=== PATIENT | male | born 1975 | race Caucasian/White ===

== ENCOUNTER 2016-12-02 09:35 | Inpatient (IN) ==
[2016-12-02] MEDS ORDERED: Lidocaine -MPF 1% 2 ML VIAL ID ONE (09:54)
[2016-12-02] MEDS ORDERED: CeFAZolin Pre 2,000 MG/100 ML 2,000 MG/100 ML BAG IVPB ONE (09:54)
[2016-12-02] MEDS ORDERED: 0.9 % Sodium Chloride 1,000 ML IVC SCH (10:00)
[2016-12-02] MEDS ORDERED: Bupivacaine/EPI 1:200k 0.25%PF 30 ML VIAL ONE (10:01)
[2016-12-02] MEDS ORDERED: 0.9 % Sodium Chloride 500 ML IVC SCH (10:03)
[2016-12-02] MEDS ORDERED: Famotidine 20 MG/2 ML VIAL IVP ONE (10:09)
--- NOTE | 2016-12-02 10:26 | Anesthesia Evaluation PreOp ---
Date of Encounter: 12/02/16 Time of Encounter: 10:25 - Past History Planned Operation: Rt Robotic Partial Nephrectomy Cardiac History: HTN, Hyperlipidemia Pulmonary History: Denies Any Significant HX DRUG ENFORCEMENT AGENT History: Seizures (from 2009 Stroke), CVA (2009, 2012, 2015 visual loss) Other Medical History: Renal (Renal Mass, CKD) Anesthesia History: No Prior Anesthetic Complications Alcohol Use: none Medications and Allergies Amoxicillin 875 mg PO BID #20 tablet 06/06/16 [Rx] Aspirin [Aspirin] 06/06/16 [History] LevETIRAcetam [Keppra] 500 mg PO 06/06/16 [History] Omeprazole [PriLOSEC] 06/06/16 [History] Allergies No Known Allergies Allergy (Verified 06/06/16 12:37) - Meds/Allergy Pre-op Review Medications Reviewed: Yes Allergies Reviewed: Yes Beta Blockers on Current Med List: No Anesthesia Results - Labs Laboratory Tests 11/28/16 11/28/16 18:09 18:09 Hgb 15.9 Hct 48.0 Plt Count 200 Sodium 141 Potassium 4.4 BUN 30 H Creatinine 2.36 H - Imaging EKG: report reviewed (SR, marked Rt [place] Deviation) Anesthesia Exam O2 Sat Height 1.8 m Height 1.8 m Weight 60.328 kg Weight 60.328 kg O2 Sat by Pulse Oximetry 100 Vital Signs Temp Pulse Resp BP Pulse Ox 99.1 F 87 18 156/93 100 12/02/16 10:13 12/02/16 10:13 12/02/16 10:13 12/02/16 10:13 12/02/16 10:13 Height: 5'10 Weight: 133 lbs NPO (# of Hours): MN Pain Scale: 0 - HEENT Pupil (Motor): Pupils equal, EOMI Mallampati: II Teeth: Normal Oral Opening: Greater than 3 - DRUG ENFORCEMENT AGENT LOC: Oriented DRUG ENFORCEMENT AGENT Motor: Normal RUE, Normal LUE, Normal RLE, Normal LLE, Normal Face DRUG ENFORCEMENT AGENT Sensory: Normal: RUE, LUE, RLE, LLE, Deficit: Face (Visual loss) - Cardiac Rhythm: Regular Murmur: None JVD: No Carotid Bruit: No - Pulmonary Breath Sounds: bilateral Clear Respiratory Effort: Symmetrical Anesthesia Assess/Plan ASA Score: 3 (CVA HTN) Modified [place] Scale for Level of Consciousness: Cooperative, oriented, and tranquil Anesthetic Plan: General Monitoring Plan: Standard Monitors, A-Line Recovery Plan: PACU (Discussed GA, agrees to proceed)
[2016-12-02] MEDS ORDERED: Lidocaine -MPF 2% 2 ML VIAL ONE (10:44)
[2016-12-02] MEDS ORDERED: Dexamethasone 4 MG/ML VIAL ONE (10:44)
[2016-12-02] MEDS ORDERED: *HR* Phenylephrine 10 MG/ML VIAL ONE (10:44)
[2016-12-02] MEDS ORDERED: Ondansetron 4 MG/2 ML VIAL ONE (10:44)
[2016-12-02] MEDS ORDERED: *HR* Rocuronium Bromide 50 MG/5 ML VIAL ONE ×2 (10:44→12:02)
[2016-12-02] MEDS ORDERED: Heparin 1,000 UNITS/500 mL NS 500 ML ONE (10:46)
[2016-12-02] MEDS ORDERED: *HR* FentaNYL (PF) 100 MCG/2 ML VIAL ONE ×2 (10:46)
[2016-12-02] MEDS ORDERED: *HR* Propofol 200 MG/20 ML VIAL IVP ONE (10:46)
[2016-12-02] MEDS ORDERED: *HR* Midazolam HCl 5 MG/5 ML VIAL IVP ONE (11:01)
--- NOTE | 2016-12-02 11:07 | History & Physical Report ---
Date of Encounter: 12/02/16 Time of Encounter: 11:06 24 Hour HP Update - Instructions Instructions: If the History and Physical is less than 30 days old and was completed prior to A.M. admission and or procedure and has NOT been updated on calendar day of procedure please complete this update prior to performing procedure. - Update Patient reports changes in Medical Condition: No Changes in assessment/condition: No Changes in Medication: No Preop tests/diagnostics Reviewed: Yes Surgery Remains Indicated: Yes Consent for Planned Operative Procedure(s) Verified: Yes - Pre-Operative Checklist Preoperative Checklist Indicated: Yes Prophylactic Antibiotic Ordered: Yes Home Medications Include Beta Damian: No Is VTE Prophylaxis Indicated?: Yes
[2016-12-02] MEDS ORDERED: *HR* Metoprolol 5 MG/5 ML VIAL IVP ONE (12:00)
--- NOTE | 2016-12-02 12:23 | Anesthesia Procedures ---
Date of Encounter: 12/02/16 Time of Encounter: 11:40 Procedures: Anesthesia - Arterial Line Consent obtained: written consent Time out performed: Yes Sedation: Versed (mg): 2 Sedation: Fentanyl (mcg): 100 Size (Gauge): 20 Length (inches): 1 3/4 Technique Used: sterile prep, guide wire technique, direct puncture technique Post-Procedure: line taped into place, dry sterile dressing placed Patient tolerated procedure: well, no complications Complications: none Site: Radial L
[2016-12-02] MEDS ORDERED: Mannitol 25% vial 12.5 GM/50 ML VIAL ONE (12:50)
[2016-12-02] MEDS ORDERED: Neostigmine Methylsulfate 3 MG/3 ML SYRINGE ONE (14:00)
[2016-12-02] MEDS ORDERED: *HR* HYDROmorphone (PF) 1 MG/ML SYRINGE ONE ×3 (14:14→14:52)
[2016-12-02] MEDS: *HR* HYDROmorphone (PF) 1 MG/ML SYRINGE IVP PRN ×6 (14:15→15:00)
[2016-12-02] MEDS ORDERED: *HR* Promethazine 25 MG/ML VIAL IVP PRN (14:18)
[2016-12-02] MEDS ORDERED: *HR* Meperidine 25 MG/ML SYRINGE ONE (14:20)
[2016-12-02] MEDS: *HR* Meperidine 25 MG/ML SYRINGE IVP PRN ×2 (14:23→14:35)
--- NOTE | 2016-12-02 14:23 | Operative Note ---
Date of procedure: 12/02/16 Pre-op diagnosis: Right renal mass Post-op diagnosis: same Procedure: Right robotic partial nephrectomy. Implants: 19 German Kendrick drain. 16 German Rasmussen. Complications: none. Anesthesia: JELLY Surgeon: Marlo Iqbal Jewel Hole Gauger: Ziggy Ybarra Estimated blood loss (cc): 150 Specimen: Right renal mass Condition: stable Disposition: PACU Procedure in Detail: Indications: Trell is a 41-year-old man who presents with a right renal mass. He has an atrophic left kidney and renal impairment. He elected to undergo a right robotic partial nephrectomy. He was informed of the risks of the procedure which include but are not limited to bleeding, infection, injury to other structures, need for further procedures, urine leak, bowel injury, need for complete nephrectomy, need for open conversion, and the risk of anesthesia. He is willing to proceed. Procedure After informed consent was obtained the patient was brought back to the operating room and placed in the supine position. A timeout was performed. Gen. anesthesia was then administered and an endotracheal tube was placed. Appropriate IV access and arterial lines were obtained. A Rasmussen catheter was then placed. He was then placed in the flank position. His right side was up. All pressure points were padded. He was well secured to the table. He was then prepped and draped in the usual sterile fashion. We then marked out our incision within the umbilicus. A 10 mm incision was then made. The Veress needle was introduced. 2 clicks were heard. It passed the water drop test. Insufflation was then initiated. Pressures were low consecutively. The abdomen was insufflated. Once the pressure was up to 15, we inserted the 12 mm laparoscopic port with the visual obturator. Entry was obtained into the abdomen. The bowel was surveyed below and there is no evidence of bowel injury. Robotic ports were then inserted inferior and lateral to the camera port and superior to the camera port. A 12 mm port was placed for the purchasing administrative assistant inferior to the umbilicus. The robot was docked. The bowel was reflected off the kidney along the white line of Toldt. The mass was easily seen located anteriorly on the kidney. The vena cava was easily identified and that was followed up to the level of the renal vein. The renal artery came behind the inferior vena cava and draped over top of the renal vein with 2 branches. There was a lower pole artery branch and venous branch. In addition there was a branch moving to the superior aspect of the kidney. The vein going to the inferior location the kidney near the mass was dissected. I isolated the artery proximal to its branching point. I then turned my attention to the fat overlying the renal mass. This was dissected off the kidney. The ultrasound was then obtained. I identified the circumference of the tumor and ascertained the depth at which it went. The area of incision through the capsule was identified. This was scored with electrocautery. I utilized a small amount of ICG to identify the normal parenchyma. Mannitol was then given. The renal artery was clamped using the bulldog. The vein was also clamped with a bulldog. The tumor was excised sharply using cold scissors. Once the tumor was removed I utilized a 3-O V-LOC x 2 to close the deeper vessels in a running fashion. Hemostasis was then achieved along these vessels. I then closed the capsule to itself using 0 Vicryl suture in an interrupted fashion with the sliding clip renorrhaphy technique. Hemostasis was good. The bulldog clamp was removed. 24 minutes of warm ischemia time was noted. Once the bulldog clamp was removed and FloSeal was applied to the resection area. Hemostasis seemed adequate. The pressure was dropped to 5 and I saw no evidence of bleeding. The Gerota's fascia was closed back over top of the kidney using a 3-0 Vicryl suture. The specimen was removed in a specimen bag. The specimen was extracted through the assistance port after opening the skin and fascia slightly with electrocautery. A 19 German Kendrick drain was then placed. All the ports were then removed. The fascia of the extraction site was closed in a running fashion using an 0 Vicryl suture. The umbilical port site was closed using an 0 Vicryl suture in an interrupted fashion. The wounds were closed using 4-0 Monocryl suture. The drain was secured to the skin using a Nylon suture. Local anesthetic was infiltrated into the wounds. The abdomen was then washed and dried and Dermabond was applied to the wounds. The patient was then awakened from general anesthesia and brought to recovery room in good condition. All sponge, needle, and instrument counts were correct. Dr. Ziggy Ybarra assisted me through the entire surgery.
[2016-12-02] MEDS ORDERED: Ringers Solution, Lactated 1,000 ML IVC SCH (14:30)
[2016-12-02] MEDS: *HR* Labetalol 100 MG/20 ML MDV IVP PRN ×2 (14:45→14:50)
--- NOTE | 2016-12-02 15:14 | Anesthesia Evaluation Post Op ---
Date of Encounter: 12/02/16 Time of Encounter: 15:11 - Vital Signs Vital Signs: Selected Entries 12/02/16 14:10 Temperature 97.3 F L Pulse Rate 90 Respiratory Rate 16 Blood Pressure 154/108 O2 Sat by Pulse Oximetry 100 Oxygen Flow Rate (LPM) 3 - Lungs Lungs: Clear Ascult./Percussion - Airway Airway: Non-obstructed - Cardiovascular Regular Rate - Mental Status Mental Status: Alert & Oriented, Answers Appropriately - Pain Pain Scale: 5 Pain Scale used: Numeric (1 - 10) (Patient will complain of pain but if not disturbed, he falls asleep. Has had 3mg Dilaudid, will not give additional at this time.) - Nausea Vomiting Nausea Vomiting: Not Present - Hydration Hydration: NPO, Rasmussen catheter Notes: 12/02/16 15:13 Blood pressure still slightly elevated but is probably close to baseline. He has not had BP meds at home due to cost. Has had BP meds iv in OR and PACU. Believe patient can go to floor. - Discharge PostOp Status: Transfer Patient to floor
[2016-12-02] MEDS ORDERED: Naloxone 0.4 MG/ML INJ IVP PRN (16:15)
[2016-12-02] MEDS ORDERED: *HR* HYDROmorphone (PF) 1 MG/ML SYRINGE IVP PRN (16:15)
[2016-12-02] MEDS ORDERED: *HR* OxyCODONE Immed Rel 5 MG TABLET PO PRN (16:15)
[2016-12-02] MEDS ORDERED: *HR* Promethazine 25 MG/ML VIAL IM PRN (16:15)
[2016-12-02] MEDS: Ondansetron 4 MG/2 ML VIAL IVP PRN ×2 (18:07→23:45)
[2016-12-02] MEDS: 0.9 % Sodium Chloride 1,000 ML IVC SCH (18:08)
[2016-12-02] MEDS: Acetaminophen 325 MG TABLET PO PRN (18:47)
[2016-12-02] MEDS: levETIRAcetam 250 MG TABLET PO SCH (21:14)
[2016-12-02] MEDS: ceFAZolin 2,000 MG in D5% in Water 100 ML IVPB SCH (21:16)
[2016-12-03] MEDS: Acetaminophen 325 MG TABLET PO PRN ×2 (01:37→09:18)
[2016-12-03] MEDS: ceFAZolin 2,000 MG in D5% in Water 100 ML IVPB SCH ×2 (04:13→11:57)
[2016-12-03] MEDS: 0.9 % Sodium Chloride 1,000 ML IVC SCH (04:14)
[2016-12-03 04:51] LABS: Basophils % 0.1 %; Hematocrit 41.5 % (37.5-50.1); Hemoglobin 13.6 g/dL (12.9-16.9); Immature Granulocytes % 0.5 % (0-4); Lymphocytes # 0.5 K/mcL (0.6-4.6); Lymphocytes % 3.2 %; Mean Corpuscular HGB Conc 32.8 g/dL (31.6-35.5); Mean Corpuscular Hemoglobin 30.3 pg (28.0-33.3); Mean Corpuscular Volume 92.4 fL (83.0-100.0); Mean Platelet Volume 10.7 fL (9.4-12.4); Monocytes # 0.8 K/mcL (0.0-1.3); Monocytes % 5.3 %; Neutrophils # 13.5 K/mcL (1.6-8.9); Platelet Count 187 K/mcL (140-400); Red Blood Count 4.49 M/mcL (4.19-5.50); Segmented Neutrophils % 90.9 %
[2016-12-03] MEDS ORDERED: 0.9 % Sodium Chloride 1,000 ML IVC SCH (07:27)
--- NOTE | 2016-12-03 07:30 | Urology Progress Note ---
Date of Encounter: 12/03/16 Time of Encounter: 07:27 - Assessment and Plan (1) Renal mass, right Current Visit: Yes Status: Acute Assessment and plan: s/p robotic partial nephrectomy (right) - POD #1. BRENDEN output has been low. UOP good. Vital signs are stable. Creatinine at 2.5. HCt okay. 1. d/c noel. 2. ADAT. 3. Decrease IVF. 4. Will reassess today to see if we can d/c BRENDEN later on. 5. Ween off IV pain medication. If tolerating diet, may consider d/c home later today. Progress Note Narrative: Doing well. Pain is 4/10. Some burping. Tolerating clears. Low grade temp this AM. No chest pain or SOB. BRENDEN drain shows low output. Objective Initial Vital Signs Temp Pulse Resp BP Pulse Ox 99.1 F 87 18 156/93 100 12/02/16 10:13 12/02/16 10:13 12/02/16 10:13 12/02/16 10:13 12/02/16 10:13 - General physical appearance Present: well developed, well nourished, no distress - Respiratory Present: normal respiratory effort - Abdomen Present: soft (appropriate tenderness. BRENDEN low output with sanguinous fluid.) - Genitourinary Present: normal penis with no external lesions Urine Appearance: Present: Clear - Labs 12/03/16 04:31 12/03/16 04:31 Diabetes panel 12/03/16 Range/Units 04:31 Sodium 135 L (136-145) mEq/L Potassium 5.0 H (3.5-4.5) mEq/L Chloride 107 (98-109) mEq/L Carbon Dioxide 19 (19-29) mEq/L BUN 32 H (8-26) mg/dL Creatinine 2.51 H (0.72-1.25) mg/dL Glucose 128 H (70-99) mg/dL Calcium 9.0 (8.6-10.8) mg/dL Calcium panel 12/03/16 Range/Units 04:31 Calcium 9.0 (8.6-10.8) mg/dL Pituitary panel 12/03/16 Range/Units 04:31 Sodium 135 L (136-145) mEq/L Potassium 5.0 H (3.5-4.5) mEq/L Chloride 107 (98-109) mEq/L Carbon Dioxide 19 (19-29) mEq/L BUN 32 H (8-26) mg/dL Creatinine 2.51 H (0.72-1.25) mg/dL Glucose 128 H (70-99) mg/dL Calcium 9.0 (8.6-10.8) mg/dL Adrenal panel 12/03/16 Range/Units 04:31 Sodium 135 L (136-145) mEq/L Potassium 5.0 H (3.5-4.5) mEq/L Chloride 107 (98-109) mEq/L Carbon Dioxide 19 (19-29) mEq/L BUN 32 H (8-26) mg/dL Creatinine 2.51 H (0.72-1.25) mg/dL Glucose 128 H (70-99) mg/dL Calcium 9.0 (8.6-10.8) mg/dL - VTE Documentation of Mechanical Device: Intermittent pneumatic compression device Consult Discharge Plan - Plan Referrals: Hola Melvin MD [Primary Care Provider] -
[2016-12-03] MEDS: levETIRAcetam 250 MG TABLET PO SCH ×2 (09:12→20:28)
[2016-12-03] MEDS: amLODIPine 5 MG TABLET PO SCH (09:12)
[2016-12-03] MEDS: *HR* OxyCODONE Immed Rel 5 MG TABLET PO PRN ×2 (10:55→18:59)
--- NOTE | 2016-12-03 12:26 | Nephrology Consult Note ---
<Orin Mahajan Shannan - Last Filed: 12/03/16 12:36> Date of Encounter: 12/03/16 Time of Encounter: 12:20 Assessment and Plan (1) CKD (chronic kidney disease), stage III Status: Acute Will start with a CKD workup including a PTH, C3 and C4 compliment, Vit D 25-OH , TYREE, SPEP, and UPEP OK for a kidney stand point to be discharged today if primary team wishes however patient must have a BMP one week after discharge and follow up in the office with Dr Villegas in 1-2 weeks. Avoid nephrotoxins if possible. Please send for old records from pastrycook at . (2) HTN (hypertension) Status: Acute per primary team Qualifiers: Qualified Code(s): I10 - Essential (primary) hypertension (3) Renal mass, right Status: Acute per urology team History of Present Illness - Reason for Consult Consult date: 12/03/16 Chronic Kidney Disease - Chief Complaint renal mass, CKD - History of Present Illness Mr Seaman is a 41 year old male who underwent a partial nehrectomy for a right renal mass measuring 2.6 x 3.1 x 3.1. His past medical history includes HTN, hyperlipidemia, seizures, CVA, and CKD. MRI of abdomen on 10/17/16 shows right renal mass and atrophic left kidney with multiple nonenhancing renal lesions likely reflective of cysts or hemorrhagic cysts. Patient's is at bedside and states they are aware he has some kidney disease and has actually seen a pastrycook in the past at [facility] however they do not follow with this doctor on a regular basis. Scr baseline is reported at 2.4 Past Med Surg Social Fam HX - Past Medical History Medical history: CVA, hypertension, renal disease, seizures Psychiatric history: no psych history - Past Surgical History Surgical History: no surgical history, other - Social History Smoking Status: Never smoker Smokeless Tobacco Status: No Alcohol use: none - Family History Mother History Unknown: Yes Medications and Allergies LevETIRAcetam [Keppra] 500 mg PO BID 06/06/16 [History] Amlodipine [Norvasc] 5 mg PO DAILY 12/02/16 [History] Arginine HCl [l-Arginine] 1,000 mg PO DAILY 12/02/16 [History] Atorvastatin Calcium [Lipitor] 20 mg PO DAILY 12/02/16 [History] Propranolol [Inderal] 10 mg PO TID 12/02/16 [History] Docusate [Colace] 100 mg PO BID #60 capsule 12/04/16 [Rx] OxyCODONE Immed Rel [Roxicodone 5 MG] 5 mg PO Q4H PRN #25 tablet 12/04/16 [Rx] Allergies No Known Allergies Allergy (Verified 06/06/16 12:37) Review of Systems All Systems: reviewed and no additional remarkable complaints except as stated Cardiovascular: no chest pain, no dyspnea, no leg edema Respiratory: no cough, no wheezing Gastrointestinal: no abdominal pain, no nausea, no vomiting Neurological: no confusion, no dizziness Psychiatric: anxiety Exam - Vital Signs Vital signs: Initial Vital Signs Temp Pulse Resp BP Pulse Ox 99.1 F 87 18 156/93 100 12/02/16 10:13 12/02/16 10:13 12/02/16 10:13 12/02/16 10:13 12/02/16 10:13 Vital Signs - Last 8 Hours Temp Pulse Resp BP Pulse Ox 12/03/16 10:27 99.0 F 93 18 148/91 99 12/03/16 06:52 99.3 F 67 18 148/81 99 12/03/16 05:16 100.1 F H 67 16 154/87 99 Intake and Output 12/02/16 12/03/16 12/03/16 23:59 07:59 15:59 Intake Total 100 / 100 1200 / 1200 915 / 915 Output Total 770 / 770 1080 / 1080 430 / 430 Balance -670 / -670 120 / 120 485 / 485 Intake: IV Fluids 100 / 100 1100 / 1100 675 / 675 0.9 % Sodium Chloride 1, 1000 / 1000 675 / 675 000 ML @ 125 mls/hr IVC . Q8H [facility] Rx#:[id number] Ancef 2,000 MG In 100 / 100 100 / 100 Dextrose 5% 100 ML @ 200 mls/hr IVPB Q8H [facility] Rx#: [id number] Oral 0 / 0 100 / 100 240 / 240 Output: Urine 0 / 0 400 / 400 Catheter 750 / 750 1050 / 1050 Wound Drainage 20 / 20 30 / 30 30 / 30 Right Lower Abdomen 20 / 20 30 / 30 30 / 30 Other: Meal Breakfast Percent of Meal Consumed 20% # Bowel Movements 0 - General Appearance General appearance: well-developed, well-nourished EENT: ATNC, mucous membranes moist, hearing intact, vision intact Neck: supple Respiratory: clear Cardiology: no edema, normal S1, normal S2 Gastrointestinal: no tenderness, no guarding Integumentary: warm and dry Neurologic: alert and oriented x3 Psychiatric: mood/affect appropriate, cooperative Results - Lab Results 12/03/16 04:31 12/03/16 04:31 Most recent lab results Calcium 9.0 mg/dL (8.6-10.8) 12/03/16 04:31 Consult Discharge Plan - Plan Instructions: Chronic Hypertension (DC) Additional Instructions: 1. Hold aspirin x 2 weeks. 2. No heavy lifting > 20 # x 2 weeks. 3. Okay to shower. 4. No tub baths x 2 weeks. 5. Provide dressing supplies for drain site. 6. He should return for any fevers, chills, nausea, emesis, shortness of breath or chest pain. 7. Follow up with Dr. Iqbal in 2 weeks. Referrals: Marlo Iqbal MD [Partnered Physician] - 12/19/16 10:15 am (2 weeks for a post op check.) Santiago Villegas MD [Partnered Physician] - 12/10/16 11:00 am (1 week.) Prescriptions: Docusate [Colace] 100 mg PO BID #60 capsule OxyCODONE Immed Rel [Roxicodone 5 MG] 5 mg PO Q4H PRN #25 tablet PRN Reason: Moderate Pain <Santiago Villegas - Last Filed: 12/09/16 20:05> Date of Encounter: 12/03/16 Exam - Vital Signs Vital signs: Initial Vital Signs Temp Pulse Resp BP Pulse Ox 99.1 F 87 18 156/93 100 12/02/16 10:13 12/02/16 10:13 12/02/16 10:13 12/02/16 10:13 12/02/16 10:13 Results - Lab Results 12/05/16 05:25 12/05/16 05:25 Most recent lab results Calcium 9.5 mg/dL (8.6-10.8) 12/05/16 05:25 Urine Creatinine 56 mg/dL 12/05/16 14:34 Urine Total Protein 193 mg/dL (1-14) H 12/05/16 14:34 - Attending Attestation I examined this patient and my medical decision-making was reviewed with the HAND SCUDDER/PA/Advanced Practice Nurse/Resident Physician. I agree with the documented findings, disposition and treatment plan as described except to the extent set forth below. Pt seen and examined, in summary 41 y o male with PMH of HTN, CVA, seizure and CKD with atrophic left kidney who underwent partial right nephrectomy for renal mass. Renal consulted fro management of renal function. SCr presurgery noted at 2.4 and post surgery at 2.5. Will check urine for UA and proteinuria Will check pTH and vitamin D levels Will check SPEP and UPEP Encouraged po fluids Encouraged avoidance of nephrotoxins if possible Will followup on outpatient with me for fdc management of CKD Thank you for consulting [facility]
[2016-12-03] MEDS: Bisacodyl 10 MG RECTAL SUPPOSITORY RC SCH (17:33)
[2016-12-03] MEDS: hydrALAZINE 25 MG TABLET PO SCH (22:09)
[2016-12-04] MEDS: Acetaminophen 325 MG TABLET PO PRN ×2 (04:19→21:14)
[2016-12-04 04:56] LABS: Basophils # 0.1 K/mcL (0.0-0.2); Basophils % 0.2 %; Hematocrit 43.4 % (37.5-50.1); Hemoglobin 14.9 g/dL (12.9-16.9); Immature Granulocytes % 0.5 % (0-4); Lymphocytes % 4.8 %; Mean Corpuscular HGB Conc 34.3 g/dL (31.6-35.5); Mean Corpuscular Hemoglobin 31.6 pg (28.0-33.3); Mean Corpuscular Volume 91.9 fL (83.0-100.0); Mean Platelet Volume 11.2 fL (9.4-12.4); Monocytes # 2.4 K/mcL (0.0-1.3); Monocytes % 11.8 %; Neutrophils # 17.1 K/mcL (1.6-8.9); Platelet Count 198 K/mcL (140-400); Red Blood Count 4.72 M/mcL (4.19-5.50); Red Cell Distribution Width 11.9 % (11.5-14.5); Segmented Neutrophils % 82.7 %
[2016-12-04 05:09] LABS: Calcium 9.4 mg/dL (8.6-10.8); Potassium 4.7 mEq/L (3.5-4.5)
[2016-12-04] MEDS: hydrALAZINE 25 MG TABLET PO SCH ×3 (05:58→21:14)
--- NOTE | 2016-12-04 07:17 | Urology Progress Note ---
Date of Encounter: 12/04/16 Time of Encounter: 07:15 - Assessment and Plan (1) Renal mass, right Current Visit: Yes Status: Acute Assessment and plan: s/p right robotic partial nephrectomy. POD #2. 1. BRENDEN removed today. 2. Continue general diet. 3. hep lock IVF. 4. Ambulate. 5. Anticipate d/c home if able to tolerate diet. (2) CKD (chronic kidney disease), stage III Current Visit: Yes Status: Acute Assessment and plan: appreciate nephrology recommendations. (3) HTN (hypertension) Current Visit: Yes Status: Acute Assessment and plan: Will continue antihypertensives. Will coordinate follow up with nephrology. Qualifiers: Qualified Code(s): I10 - Essential (primary) hypertension Progress Note Narrative: Doing okay. POD #2 s/p right robotic partial nephrectomy. HTN was noted last night. +bm. Tolerating diet. BRENDEN creatinine consistent with serum. Objective Initial Vital Signs Temp Pulse Resp BP Pulse Ox 99.1 F 87 18 156/93 100 12/02/16 10:13 12/02/16 10:13 12/02/16 10:13 12/02/16 10:13 12/02/16 10:13 - General physical appearance Present: well developed, well nourished, no distress - Respiratory Present: normal expansion - Abdomen Present: soft (incisions are c,d,i. BRENDEN serosanguionous.) - Labs 12/04/16 04:22 12/04/16 04:22 Diabetes panel 12/04/16 Range/Units 04:22 Sodium 134 L (136-145) mEq/L Potassium 4.7 H (3.5-4.5) mEq/L Chloride 107 (98-109) mEq/L Carbon Dioxide 21 (19-29) mEq/L BUN 28 H (8-26) mg/dL Creatinine 2.55 H (0.72-1.25) mg/dL Glucose 108 H (70-99) mg/dL Calcium 9.4 (8.6-10.8) mg/dL Calcium panel 12/04/16 Range/Units 04:22 Calcium 9.4 (8.6-10.8) mg/dL Pituitary panel 12/04/16 Range/Units 04:22 Sodium 134 L (136-145) mEq/L Potassium 4.7 H (3.5-4.5) mEq/L Chloride 107 (98-109) mEq/L Carbon Dioxide 21 (19-29) mEq/L BUN 28 H (8-26) mg/dL Creatinine 2.55 H (0.72-1.25) mg/dL Glucose 108 H (70-99) mg/dL Calcium 9.4 (8.6-10.8) mg/dL Adrenal panel 12/04/16 Range/Units 04:22 Sodium 134 L (136-145) mEq/L Potassium 4.7 H (3.5-4.5) mEq/L Chloride 107 (98-109) mEq/L Carbon Dioxide 21 (19-29) mEq/L BUN 28 H (8-26) mg/dL Creatinine 2.55 H (0.72-1.25) mg/dL Glucose 108 H (70-99) mg/dL Calcium 9.4 (8.6-10.8) mg/dL - VTE Documentation of Mechanical Device: Intermittent pneumatic compression device Consult Discharge Plan - Plan Referrals: Marlo Iqbal MD [Partnered Physician] - Hola Melvin MD [Primary Care Provider] -
--- NOTE | 2016-12-04 07:23 | Discharge Summary ---
Date of Encounter: 12/05/16 Time of Encounter: 12:20 - Discharge Diagnosis (1) Renal mass, right Priority: Primary Status: Acute (2) CKD (chronic kidney disease), stage III Priority: Secondary Status: Acute (3) HTN (hypertension) Priority: Secondary Status: Acute Qualifiers: Hypertension type: essential hypertension Qualified Code(s): I10 - Essential (primary) hypertension - Discharge Medications Prescriptions: Docusate [Colace] 100 mg PO BID #60 capsule OxyCODONE Immed Rel [Roxicodone 5 MG] 5 mg PO Q4H PRN #25 tablet PRN Reason: Moderate Pain Home Medications: LevETIRAcetam [Keppra] 500 mg PO BID 06/06/16 [History] Amlodipine [Norvasc] 5 mg PO DAILY 12/02/16 [History] Arginine HCl [l-Arginine] 1,000 mg PO DAILY 12/02/16 [History] Atorvastatin Calcium [Lipitor] 20 mg PO DAILY 12/02/16 [History] Propranolol [Inderal] 10 mg PO TID 12/02/16 [History] Docusate [Colace] 100 mg PO BID #60 capsule 12/04/16 [Rx] OxyCODONE Immed Rel [Roxicodone 5 MG] 5 mg PO Q4H PRN #25 tablet 12/04/16 [Rx] Allergies/Adverse Reactions: Allergies No Known Allergies Allergy (Verified 06/06/16 12:37) Labs on day of discharge: Labs from last 24 hours 12/04/16 12/04/16 12/03/16 04:22 04:22 17:40 WBC 20.7 H RBC 4.72 Hgb 14.9 Hct 43.4 MCV 91.9 MCH 31.6 MCHC 34.3 RDW 11.9 Plt Count 198 MPV 11.2 Immature Gran % 0.5 Seg Neutrophils % 82.7 Lymphocytes % 4.8 Monocytes % 11.8 Eosinophils % 0.0 Basophils % 0.2 Neutrophils # 17.1 H Lymphocytes # 1.0 Monocytes # 2.4 H Eosinophils # 0.0 Basophils # 0.1 Sodium 134 L Potassium 4.7 H Chloride 107 Carbon Dioxide 21 BUN 28 H Creatinine 2.55 H Est GFR ( Amer) 34 L Est GFR (Non-Af Amer) 28 L BUN/Creatinine Ratio 11 Glucose 108 H Calculated Osmolality 284 Calcium 9.4 PTH Intact Fluid Creatinine 2.52 12/03/16 13:02 WBC RBC Hgb Hct MCV MCH MCHC RDW Plt Count MPV Immature Gran % Seg Neutrophils % Lymphocytes % Monocytes % Eosinophils % Basophils % Neutrophils # Lymphocytes # Monocytes # Eosinophils # Basophils # Sodium Potassium Chloride Carbon Dioxide BUN Creatinine Est GFR ( Amer) Est GFR (Non-Af Amer) BUN/Creatinine Ratio Glucose Calculated Osmolality Calcium PTH Intact 139.2 H Fluid Creatinine Date of admission: 12/02/16 16:07 Primary care physician: Hola Melvin MD Consults: 12/03/16 08:37 Consult to Nephrology [CONS] Routine Consulting Provider: Kidney Tamara/PETRA/PELON/CRISTIANO Reason for Consult: Renal insufficiency Call Completed: Yes Discharging clinician: Marlo Iqbal Anticipated date of discharge: 12/05/16 - Patient Status Disposition: Home, Self-Care Condition: Good Functional capacity at discharge: independent ambulation Overall status at discharge: patient is progressing back to baseline - Discharge Instructions Follow Up With: Hola Melvin MD [Primary Care Provider] - Santiago Villegas MD [Partnered Physician] - (1 week.) Marlo Iqbal MD [Partnered Physician] - (2 weeks for a post op check.) Additional Instructions: 1. Hold aspirin x 2 weeks. 2. No heavy lifting > 20 # x 2 weeks. 3. Okay to shower. 4. No tub baths x 2 weeks. 5. Provide dressing supplies for drain site. 6. He should return for any fevers, chills, nausea, emesis, shortness of breath or chest pain. 7. Follow up with Dr. Iqbal in 2 weeks. - Diet and Activity Activity: increase activity as tolerated Diet: advance to your usual diet - Hospital Course Hospital course: Mr. Seaman is a 41 year old male s/p right robotic partial nephrectomy from . He did well after surgery. His pain was well controlled. Once his bowel function improved, he was advanced to a regular diet. His drain was removed on POD #2. BRENDEN creatinine was consistent with serum prior to removal. Hemoglobin was stable from POD #1 to POD #2. A nephrology consult was obtained for his chronic renal insufficiency. He had some gas pains and stayed until POD #3. His abdominal pain improved. He was passing gas. He was then discharged home. - Time Spent with Patient Total time spent providing and/or coordinating discharge services: Less than 30 minutes Exam Initial Vital Signs Temp Pulse Resp BP Pulse Ox 99.1 F 87 18 156/93 100 12/02/ 10:13 12/02/16 10:13 12/02/16 10:13 12/02/16 10:13 12/02/16 10:13 - General physical appearance Present: well developed, well nourished, no distress - Eyes Absent: icteric - ENT Present: normal nares - Neck Present: trachea midline - Respiratory Present: normal respiratory effort - Cardiovascular Cardiovascular exam IM: RRR - Abdomen Abdomen: Present: soft - VTE Documentation of Mechanical Device: Intermittent pneumatic compression device
[2016-12-04] MEDS: levETIRAcetam 250 MG TABLET PO SCH ×2 (08:56→20:08)
[2016-12-04] MEDS: amLODIPine 5 MG TABLET PO SCH (08:56)
[2016-12-04] MEDS: Ondansetron 4 MG/2 ML VIAL IVP PRN (08:57)
[2016-12-04] MEDS: Bisacodyl 10 MG RECTAL SUPPOSITORY RC SCH (08:57)
[2016-12-04] MEDS: *HR* OxyCODONE Immed Rel 5 MG TABLET PO PRN ×3 (09:49→18:56)
[2016-12-04] MEDS ORDERED: Famotidine 20 MG TABLET PO PRN (17:31)
--- NOTE | 2016-12-04 17:35 | Event Note ---
Date of Encounter: 12/04/16 Time of Encounter: 17:34 He isn't passing gas well this afternoon. He feels somewhat bloated and is having GERD. He had some low grade fevers. Will order some reflux medication and check a chest x ray.
[2016-12-04] MEDS: Metoclopramide 10 MG/2 ML VIAL IVP PRN (22:25)
[2016-12-05] MEDS: Metoclopramide 10 MG/2 ML VIAL IVP PRN (05:13)
[2016-12-05] MEDS: *HR* OxyCODONE Immed Rel 5 MG TABLET PO PRN (05:14)
[2016-12-05] MEDS: hydrALAZINE 25 MG TABLET PO SCH (05:26)
[2016-12-05 06:05] LABS: Basophils # 0.1 K/mcL (0.0-0.2); Basophils % 0.3 %; Eosinophils % 0.1 %; Hematocrit 42.3 % (37.5-50.1); Hemoglobin 14.7 g/dL (12.9-16.9); Immature Granulocytes % 0.5 % (0-4); Lymphocytes # 1.2 K/mcL (0.6-4.6); Lymphocytes % 6.4 %; Mean Corpuscular HGB Conc 34.8 g/dL (31.6-35.5); Mean Corpuscular Hemoglobin 31.5 pg (28.0-33.3); Mean Corpuscular Volume 90.6 fL (83.0-100.0); Mean Platelet Volume 11.2 fL (9.4-12.4); Monocytes # 2.7 K/mcL (0.0-1.3); Monocytes % 14.6 %; Neutrophils # 14.4 K/mcL (1.6-8.9); Platelet Count 170 K/mcL (140-400); Red Blood Count 4.67 M/mcL (4.19-5.50); Red Cell Distribution Width 11.8 % (11.5-14.5); Segmented Neutrophils % 78.1 %
--- NOTE | 2016-12-05 07:17 | Urology Progress Note ---
Date of Encounter: 12/04/16 Time of Encounter: 07:15 - Assessment and Plan (1) Renal mass, right Current Visit: Yes Status: Acute Assessment and plan: POD #3 s/p right robotic partial nephrectomy. 1. Continue ambulation. 2. CXR okay. 3. WBC improved. 4. HTN improved. 5. Reglan for gas pains. 6. Will reassess this afternoon. (2) CKD (chronic kidney disease), stage III Current Visit: Yes Status: Acute (3) HTN (hypertension) Current Visit: Yes Status: Acute Qualifiers: Qualified Code(s): I10 - Essential (primary) hypertension Progress Note Narrative: Stable overnight. Having gas pains. He had to go to the bathroom to move his bowels. + flatus noted which improved abdominal pains. Tolerating general diet. Ambulating well. Pain is controlled. Objective Initial Vital Signs Temp Pulse Resp BP Pulse Ox 99.1 F 87 18 156/93 100 12/02/16 10:13 12/02/16 10:13 12/02/16 10:13 12/02/16 10:13 12/02/16 10:13 - General physical appearance Present: well developed, well nourished, moderate distress (secondary to gas pains) - Respiratory Present: normal expansion - Abdomen Present: soft (incisions are c,d,i.) - Genitourinary Present: normal penis with no external lesions - Labs 12/05/16 05:25 12/04/16 04:22 Calcium panel 12/03/16 Range/Units 13:02 25-OH Vitamin D Total 21 L (30-80) ng/mL - VTE Documentation of Mechanical Device: Graduated compression elastic hosiery Consult Discharge Plan - Plan Additional Instructions: 1. Hold aspirin x 2 weeks. 2. No heavy lifting > 20 # x 2 weeks. 3. Okay to shower. 4. No tub baths x 2 weeks. 5. Provide dressing supplies for drain site. 6. He should return for any fevers, chills, nausea, emesis, shortness of breath or chest pain. 7. Follow up with Dr. Iqbal in 2 weeks. Referrals: Marlo Iqbal MD [Partnered Physician] - (2 weeks for a post op check.) Santiago Vlilegas MD [Partnered Physician] - (1 week.) Hola Melvin MD [Primary Care Provider] - Prescriptions: Docusate [Colace] 100 mg PO BID #60 capsule OxyCODONE Immed Rel [Roxicodone 5 MG] 5 mg PO Q4H PRN #25 tablet PRN Reason: Moderate Pain
[2016-12-05] MEDS: amLODIPine 5 MG TABLET PO SCH (07:34)
[2016-12-05] MEDS: levETIRAcetam 250 MG TABLET PO SCH (07:35)
[2016-12-05] MEDS: Bisacodyl 10 MG RECTAL SUPPOSITORY RC SCH (07:35)
[2016-12-05 10:56] VITALS: BP 119/78
--- NOTE | 2016-12-05 11:10 | Nephrology Progress Note ---
<Orin Mahajan - Last Filed: 12/05/16 11:14> Date of Encounter: 12/04/16 Time of Encounter: 11:07 - Assessment and Plan (1) CKD (chronic kidney disease), stage III Status: Acute UA, microalbumin, protien ratio, and BMP Follow up with Dr Disla in office in 1-2 weeks BMP 1 week after discharge--before office f/u appointment Avoid nephrotoxins (2) HTN (hypertension) Status: Acute B/P better-143/88 today Can increase Amlodipine if needed Will follow in office Continue with current home b/p meds at discharge Qualifiers: Hypertension type: essential hypertension Qualified Code(s): I10 - Essential (primary) hypertension (3) Renal mass, right Status: Acute per urology team (4) Vitamin D deficiency Status: Acute Vit D 25-OH low at 21 Start Ergocalciferol 50,000 units once a week Subjective Principal diagnosis: CKD stage III, renal mass right Interval history: Patient seen and examined. Feeling better today. Objective - Vital Signs Vital signs: Vital Signs Temp Pulse Resp BP Pulse Ox 12/05/16 10:53 99.4 F 76 17 119/78 98 12/05/16 06:56 99.1 F 74 17 143/88 97 12/05/16 04:19 98.5 F 59 16 132/86 98 12/04/16 23:09 99.1 F 84 16 142/84 96 12/04/16 19:39 99.3 F 67 16 157/97 98 12/04/16 11:30 97.9 F 66 16 161/103 99 Intake and Output 12/04/16 12/05/16 12/05/16 23:59 07:59 15:59 Intake Total 240 / 240 0 / 0 360 / 360 Output Total 0 / 0 0 / 0 Balance 240 / 240 0 / 0 360 / 360 Intake: Oral 240 / 240 0 / 0 360 / 360 Output: Urine 0 / 0 0 / 0 Other: Meal Dinner Breakfast Percent of Meal Consumed 95% 50% # Voids 1 1 - General Appearance General appearance: Present: well-developed, well-nourished EENT: Present: ATNC, mucous membranes moist, hearing intact, vision intact Neck: Present: supple Respiratory: Present: clear Cardiology: Present: no edema, normal S1, normal S2 Gastrointestinal: Present: no tenderness, no guarding Neurologic: Present: alert and oriented x3 Psychiatric: Present: mood/affect appropriate, cooperative - Lab 12/05/16 05:25 12/04/16 04:22 Most recent lab results Calcium 9.4 mg/dL (8.6-10.8) 12/04/16 04:22 - VTE Documentation of Mechanical Device: Graduated compression elastic hosiery Consult Discharge Plan - Plan Instructions: Chronic Hypertension (DC) Additional Instructions: 1. Hold aspirin x 2 weeks. 2. No heavy lifting > 20 # x 2 weeks. 3. Okay to shower. 4. No tub baths x 2 weeks. 5. Provide dressing supplies for drain site. 6. He should return for any fevers, chills, nausea, emesis, shortness of breath or chest pain. 7. Follow up with Dr. Iqbal in 2 weeks. Referrals: Marlo Iqbal MD [Partnered Physician] - 12/19/16 10:15 am (2 weeks for a post op check.) Santiago Villegas MD [Partnered Physician] - 12/10/16 11:00 am (1 week.) Prescriptions: Docusate [Colace] 100 mg PO BID #60 capsule OxyCODONE Immed Rel [Roxicodone 5 MG] 5 mg PO Q4H PRN #25 tablet PRN Reason: Moderate Pain <Santiago Villegas - Last Filed: 12/09/16 20:08> Date of Encounter: 12/05/16 Objective - Lab 12/05/16 05:25 12/05/16 05:25 Most recent lab results Calcium 9.5 mg/dL (8.6-10.8) 12/05/16 05:25 Urine Creatinine 56 mg/dL 12/05/16 14:34 Urine Total Protein 193 mg/dL (1-14) H 12/05/16 14:34 - Attending Attestation I examined this patient and my medical decision-making was reviewed with the OCCUPATIONAL HEALTH AND SAFETY ADVISER/PA/Advanced Practice Nurse/Resident Physician. I agree with the documented findings, disposition and treatment plan as described except to the extent set forth below. Pt seen and examined feels better today. BP improved as well. Agree with discharge today with repeat BMP in a week and followup with me within 2-4 weeks.
[2016-12-05 11:16] LABS: Calcium 9.5 mg/dL (8.6-10.8); Potassium 4.3 mEq/L (3.5-4.5)
[2016-12-05 11:55] LABS: ANA IgG by ELISA NONE DETECTED (None Detected); Complement Component 3 102 mg/dL (88-201); Complement Component 4 24 mg/dL (10-40)
[2016-12-05 14:42] LABS: Bilirubin,Urine Negative (Negative); Blood,Urine Small (Negative); Clarity,Urine Clear (Clear); Color,Urine Yellow (Yellow); Glucose,Urine (UA) Normal (Normal); Ketones,Urine Negative (Negative); Leukocyte Esterase,Urine Negative (Negative); Nitrite,Urine Negative (Negative); Protein,Urine >=300 mg/dL (Neg-Trace); Urobilinogen,Urine Normal (Normal)
[2016-12-05 14:49] LABS: Bacteria,Urine None Seen per hpf (None-Few); Hyaline Casts,Urine None Seen per lpf (None-Few); Squamous Epithelial Cell,Urine Few per lpf (None-Few); WBC,Urine 0-3 per hpf (0-3)
[2016-12-05 15:04] LABS: Protein/Creatinine Ratio,Urine 3.45 mg/mg (0-0.20)
[2016-12-06 02:16] LABS: Alpha 2 Globulin (PEP) 0.73 g/dL (0.48-1.05); Beta Globulin (PEP) 0.64 g/dL (0.48-1.10)
[2016-12-06 07:22] LABS: IFE Reflexed NOT DONE
--- NOTE | 2016-12-12 16:04 | Urology History & Physical ---
Date of Encounter: 12/02/16 Time of Encounter: 10:30 Assessment and Plan (1) Renal mass, right Status: Acute Mr. Seaman is a 41-year-old man who has a history of a 3.1cm right renal mass. We reviewed various treatment options. The mass is 3.1 cm and is not amenable to observation for interval growth as the risk of progression at this size is high. In addition he is a relatively young man and I am concerned about the length of time for observation. The needle ablative approaches were discussed namely, percutaneous radiofrequency ablation. Given his age and the anterior location, I do not recommend this approach. We also discussed laparoscopic and robotic assisted partial nephrectomy in detail. The risk were described to include but not be limited to bleeding requiring transfusion, injury to surrounding structures namely colon, spleen, liver, small bowel, adrenal gland, collecting system and ureter, though the overall risk of this is small. There is a small risk of converting to an open procedure, the common causes being bleeding and difficulty accessing the mass. Post-op recovery can be expected in 2 - 4 weeks with a 2 - 3 day hospital stay. Standard DVT prophylaxis per the [place] [employer] Guidelines will be employed and include compression stockings, pneumatic compression boots and subcutaneous heparin if there is no bleeding issues postoperatively. All the patient's questions were answered and understanding of the information provided was expressed. Plan for a right robotic assisted laparoscopic partial nephrectomy. Lastly, he understands that he has a functionally solitary kidney. If the kidney had to be removed secondary to bleeding or other complications, he would likely be dialysis-dependent at that point given his essentially nonfunctioning left kidney. (2) CKD (chronic kidney disease), stage III Status: Acute (3) HTN (hypertension) Status: Acute Qualifiers: Hypertension type: essential hypertension Qualified Code(s): I10 - Essential (primary) hypertension History of Present Illness Chief complaint: Right renal mass HPI: 41-year-old man with a history of a right renal mass returns after his renal MRI. He has a 3.1cm right renal mass and is to undergo a right robotic partial nephrectomy. Past Med Surg Social Fam HX - Past Medical History Medical history: CVA, hypertension, renal disease, seizures Psychiatric history: no psych history - Past Surgical History Surgical History: no surgical history, other - Social History Smoking Status: Never smoker Smokeless Tobacco Status: No Alcohol use: none - Family History Mother History Unknown: Yes Medications and Allergies LevETIRAcetam [Keppra] 500 mg PO BID 06/06/16 [History] Amlodipine [Norvasc] 5 mg PO DAILY 12/02/16 [History] Arginine HCl [l-Arginine] 1,000 mg PO DAILY 12/02/16 [History] Atorvastatin Calcium [Lipitor] 20 mg PO DAILY 12/02/16 [History] Propranolol [Inderal] 10 mg PO TID 12/02/16 [History] Docusate [Colace] 100 mg PO BID #60 capsule 12/04/16 [Rx] OxyCODONE Immed Rel [Roxicodone 5 MG] 5 mg PO Q4H PRN #25 tablet 12/04/16 [Rx] Allergies No Known Allergies Allergy (Verified 06/06/16 12:37) Review of Systems - Constitutional no chills, no fever(s) - EENT Nose, mouth and throat: no dizziness - Cardiovascular no chest pain - Respiratory no dyspnea - Gastrointestinal no nausea, no vomiting - Genitourinary no flank pain, no hematuria - Musculoskeletal no back pain - Integumentary no erythema, no rash - Neurological no weakness - Psychiatric no suicidal ideation - Hematologic/Lymphatic no easy bleeding - Allergic/Immunologic no wheezing Exam Initial Vital Signs Temp Pulse Resp BP Pulse Ox 99.1 F 87 18 156/93 100 12/02/16 10:13 12/02/16 10:13 12/02/16 10:13 12/02/16 10:13 12/02/16 10:13 - General physical appearance Present: well developed, well nourished, no distress - Eyes Absent: icteric - ENT Present: normal nares - Neck Present: trachea midline - Respiratory Present: normal respiratory effort - Cardiovascular Cardiovascular exam IM: RRR - Abdomen Abdomen: Present: soft Urology Results - Labs 12/05/16 05:25 12/05/16 05:25 Abnormal lab results WBC 18.5 K/mcL (4.3-11.1) H 12/05/16 05:25 Neutrophils # 14.4 K/mcL (1.6-8.9) H 12/05/16 05:25 Monocytes # 2.7 K/mcL (0.0-1.3) H 12/05/16 05:25 Sodium 133 mEq/L (136-145) L 12/05/16 05:25 BUN 32 mg/dL (8-26) H 12/05/16 05:25 Creatinine 2.62 mg/dL (0.72-1.25) H 12/05/16 05:25 Est GFR ( Amer) 33 (> 60) L 12/05/16 05:25 Est GFR (Non-Af Amer) 27 (> 60) L 12/05/16 05:25 25-OH Vitamin D Total 21 ng/mL (30-80) L 12/03/16 13:02 PTH Intact 139.2 pg/ml (8.5-72.5) H 12/03/16 13:02 Urine Protein >=300 mg/dL (Neg-Trace) H 12/05/16 14:25 Urine Blood Small (Negative) H 12/05/16 14:25 Urine Microscopic RBC 3-5 per hpf (0-3) H 12/05/16 14:25 Microalb/Creat Ratio 2130 (0-30) H 12/05/16 14:34 Protein/Creatinin Ratio 3.45 mg/mg (0-0.20) H 12/05/16 14:34 Urine Total Protein 193 mg/dL (1-14) H 12/05/16 14:34 All other labs normal. - Imaging CT scan - abdomen: report reviewed, image reviewed CT scan - pelvis: report reviewed, image reviewed - VTE Documentation of Mechanical Device: Intermittent pneumatic compression device
== END 2016-12-05 14:50 | disposition home or self-care (01) | DRG 658 ==
LOC: SAMDAY 09:35 → 3ANU 16:07
PROVIDERS: ADMIT Urology; ATTEND Urology

== ENCOUNTER 2020-09-11 12:08 | Inpatient (IN) ==
[2020-09-11] MEDS ORDERED: Ondansetron 4 MG/2 ML VIAL IVP ONE (13:21)
[2020-09-11] MEDS ORDERED: 0.9 % Sodium Chloride 1,000 ML IVC SCH ×2 (13:30→17:45)
[2020-09-11 13:39] LABS: Bacteria,Urine Few per hpf (None-Few); Bilirubin,Urine Negative (Negative); Blood,Urine Moderate (Negative); Clarity,Urine Clear (Clear); Color,Urine Colorless (Yellow); Glucose,Urine (UA) 30 mg/dL (Normal); Ketones,Urine Negative (Negative); Leukocyte Esterase,Urine Negative (Negative); Nitrite,Urine Negative (Negative); Protein,Urine >=300 mg/dL (Neg-Trace); RBC,Urine 0-3 per hpf (0-3); Specific Gravity,Urine 1.009 (1.010-1.025); Squamous Epithelial Cell,Urine Few per hpf (None-Few); Urobilinogen,Urine Normal (Normal); WBC,Urine 0-3 per hpf (0-3)
[2020-09-11 13:39] LABS: Basophils % 0.5 %; Eosinophils % 0.5 %; Hematocrit 23.7 % (37.5-50.1); Hemoglobin 8.5 g/dL (12.9-16.9); Immature Granulocytes % 0.4 % (0-4); Lymphocytes # 0.5 K/mcL (0.6-4.6); Mean Corpuscular HGB Conc 35.9 g/dL (31.6-35.5); Mean Corpuscular Hemoglobin 30.4 pg (28.0-33.3); Mean Corpuscular Volume 84.6 fL (83.0-100.0); Mean Platelet Volume 10.6 fL (9.4-12.4); Monocytes # 0.5 K/mcL (0.0-1.3); Monocytes % 5.8 %; Neutrophils # 6.9 K/mcL (1.6-8.9); Platelet Count 226 K/mcL (140-400); Red Cell Distribution Width 12.1 % (11.5-14.5); Segmented Neutrophils % 86.8 %; White Blood Count 7.9 K/mcL (4.3-11.1)
[2020-09-11 14:13] LABS: Albumin 3.9 g/dL (3.5-5.7); Albumin/Globulin Ratio 1.5 (1.1-2.2); Bilirubin,Indirect 0.5 mg/dL (0.0-1.0); Bilirubin,Total 0.5 mg/dL (0.3-1.0); Calcium 7.9 mg/dL (8.6-10.3); Globulin 2.6 g/dL (2.4-3.5); Potassium 3.2 mEq/L (3.5-5.1); Total Protein 6.5 g/dL (6.4-8.9)
[2020-09-11 14:57] LABS: Adenovirus Not Detected (Not Detect); Bordetella Pertussis Not Detected (Not Detect); Chlamydophila pneumoniae Not Detected (Not Detect); Coronavirus 229E Not Detected (Not Detect); Coronavirus HKU1 Not Detected (Not Detect); Coronavirus NL63 Not Detected (Not Detect); Coronavirus OC43 Not Detected (Not Detect); Human Metapneumovirus Not Detected (Not Detect); Human Rhinovirus/Enterovirus Not Detected (Not Detect); Influenza A Subtype 2009 H1 Not Detected (Not Detect); Influenza B Not Detected (Not Detect); Mycoplasma pneumoniae Not Detected (Not Detect); Parainfluenza Virus 1 Not Detected (Not Detect); Parainfluenza Virus 2 Not Detected (Not Detect); Parainfluenza Virus 3 Not Detected (Not Detect); Parainfluenza Virus 4 Not Detected (Not Detect); Respiratory Syncytial Virus Not Detected (Not Detect); SARS-CoV-2 Not Detected (Not Detect)
[2020-09-11] MEDS ORDERED: Naloxone 0.4 MG/ML INJ IVP PRN (16:21)
[2020-09-11 17:38] LABS: Calcium 8.3 mg/dL (8.6-10.3); Potassium 3.4 mEq/L (3.5-5.1)
[2020-09-11] MEDS ORDERED: Acetaminophen 325 MG TABLET PO PRN (17:39)
[2020-09-11 17:45] LABS: Thyroid Stimulating Hormone 0.763 mcIU/mL (0.340-5.600)
[2020-09-11 18:12] LABS: Magnesium 1.5 mg/dL (1.6-2.6)
[2020-09-11 19:01] LABS: Calcium 8.3 mg/dL (8.6-10.3); Potassium 3.3 mEq/L (3.5-5.1)
[2020-09-11] MEDS: OXcarbazepine 150 MG TABLET PO SCH (20:10)
[2020-09-11] MEDS: levETIRAcetam 250 MG TABLET PO SCH (20:11)
[2020-09-11] MEDS ORDERED: Melatonin 3 MG TABLET PO PRN (20:24)
[2020-09-11 21:25] LABS: Calcium 8.3 mg/dL (8.6-10.3); Potassium 3.2 mEq/L (3.5-5.1)
[2020-09-11] MEDS ORDERED: Potassium Chloride Elixir 20 MEQ/15 ML UDC PO ONE (22:00)
[2020-09-11 23:36] LABS: Calcium 7.8 mg/dL (8.6-10.3); Potassium 3.6 mEq/L (3.5-5.1)
[2020-09-12 01:36] LABS: Calcium 7.7 mg/dL (8.6-10.3); Potassium 3.6 mEq/L (3.5-5.1)
[2020-09-12 03:18] LABS: Calcium 7.6 mg/dL (8.6-10.3); Potassium 3.8 mEq/L (3.5-5.1)
[2020-09-12] MEDS: *HR* Heparin 5,000 UNIT/ML VIAL SQ SCH ×3 (04:10→17:11)
[2020-09-12 05:16] LABS: VBG Ionized Calcium 1.01 mmol/L (1.15-1.35)
[2020-09-12 05:43] LABS: Calcium 8.2 mg/dL (8.6-10.3); Magnesium 2.2 mg/dL (1.6-2.6); Phosphorous 6.2 mg/dL (2.7-4.5); Uric Acid 7.4 mg/dL (2.3-7.6)
[2020-09-12 05:50] LABS: Basophils % 0.6 %; Eosinophils % 0.6 %; Hematocrit 20.9 % (37.5-50.1); Hemoglobin 7.7 g/dL (12.9-16.9); Immature Granulocytes % 0.2 % (0-4); Lymphocytes # 0.5 K/mcL (0.6-4.6); Lymphocytes % 8.7 %; Mean Corpuscular HGB Conc 36.8 g/dL (31.6-35.5); Mean Corpuscular Hemoglobin 30.9 pg (28.0-33.3); Mean Corpuscular Volume 83.9 fL (83.0-100.0); Mean Platelet Volume 10.7 fL (9.4-12.4); Monocytes # 0.5 K/mcL (0.0-1.3); Monocytes % 8.7 %; Neutrophils # 4.4 K/mcL (1.6-8.9); Platelet Count 205 K/mcL (140-400); Red Blood Count 2.49 M/mcL (4.19-5.50); Red Cell Distribution Width 12.2 % (11.5-14.5); Segmented Neutrophils % 81.2 %; White Blood Count 5.4 K/mcL (4.3-11.1)
[2020-09-12 07:14] LABS: Potassium 3.9 mEq/L (3.5-5.1)
[2020-09-12] MEDS: OXcarbazepine 150 MG TABLET PO SCH ×2 (08:18→20:11)
[2020-09-12] MEDS: levETIRAcetam 250 MG TABLET PO SCH ×2 (08:18→20:11)
[2020-09-12] MEDS ORDERED: amLODIPine 5 MG TABLET PO SCH (09:00)
[2020-09-12 09:13] LABS: Calcium 8.2 mg/dL (8.6-10.3); Potassium 3.9 mEq/L (3.5-5.1)
[2020-09-12] MEDS ORDERED: Naloxone 0.4 MG/ML INJ IVP PRN (13:46)
[2020-09-12] MEDS: Calcium Gluconate 1gm/50mL 1 GM/50 ML BAG IVPB SCH ×2 (16:10→16:53)
[2020-09-12 18:31] LABS: Calcium 9.2 mg/dL (8.6-10.3); Potassium 4.2 mEq/L (3.5-5.1)
[2020-09-12 23:14] LABS: Calcium 8.5 mg/dL (8.6-10.3); Potassium 4.1 mEq/L (3.5-5.1)
[2020-09-13] MEDS: *HR* Heparin 5,000 UNIT/ML VIAL SQ SCH ×3 (00:16→15:20)
[2020-09-13 07:56] LABS: Hemoglobin 7.5 g/dL (12.9-16.9); Mean Corpuscular HGB Conc 34.1 g/dL (31.6-35.5); Mean Corpuscular Hemoglobin 30.5 pg (28.0-33.3); Mean Corpuscular Volume 89.4 fL (83.0-100.0); Mean Platelet Volume 10.3 fL (9.4-12.4); Platelet Count 222 K/mcL (140-400); Red Blood Count 2.46 M/mcL (4.19-5.50); Red Cell Distribution Width 12.4 % (11.5-14.5)
[2020-09-13 08:07] LABS: VBG Ionized Calcium 1.01 mmol/L (1.15-1.35)
[2020-09-13 08:21] LABS: Calcium 8.6 mg/dL (8.6-10.3); Potassium 4.2 mEq/L (3.5-5.1)
[2020-09-13] MEDS: Aspirin Enteric Coated 81 MG Tablet PO SCH (09:35)
[2020-09-13] MEDS: levETIRAcetam 250 MG TABLET PO SCH ×2 (09:36→19:29)
[2020-09-13] MEDS: OXcarbazepine 150 MG TABLET PO SCH ×2 (09:36→19:29)
[2020-09-13] MEDS: amLODIPine 5 MG TABLET PO SCH (09:36)
[2020-09-13] MEDS: Calcium Gluconate 1gm/50mL 1 GM/50 ML BAG IVPB SCH ×2 (13:26→15:19)
[2020-09-13] MEDS ORDERED: Heparin 1,000 UNITS/500 mL 500 ML ONE (13:50)
[2020-09-13] MEDS ORDERED: *HR* Heparin 5,000 UNIT/ML VIAL ONE (13:52)
[2020-09-14] MEDS: *HR* Heparin 5,000 UNIT/ML VIAL SQ SCH ×4 (01:12→20:45)
[2020-09-14 04:21] LABS: Basophils # 0.1 K/mcL (0.0-0.2); Basophils % 0.9 %; Eosinophils # 0.2 K/mcL (0.0-0.6); Eosinophils % 2.5 %; Hematocrit 20.6 % (37.5-50.1); Hemoglobin 7.3 g/dL (12.9-16.9); Immature Granulocytes % 0.1 % (0-4); Lymphocytes % 15.2 %; Mean Corpuscular HGB Conc 35.4 g/dL (31.6-35.5); Mean Corpuscular Hemoglobin 30.7 pg (28.0-33.3); Mean Corpuscular Volume 86.6 fL (83.0-100.0); Mean Platelet Volume 10.3 fL (9.4-12.4); Monocytes # 0.7 K/mcL (0.0-1.3); Monocytes % 9.5 %; Neutrophils # 4.9 K/mcL (1.6-8.9); Platelet Count 222 K/mcL (140-400); Red Blood Count 2.38 M/mcL (4.19-5.50); Red Cell Distribution Width 12.4 % (11.5-14.5); Segmented Neutrophils % 71.8 %; White Blood Count 6.8 K/mcL (4.3-11.1)
[2020-09-14 04:28] LABS: VBG Ionized Calcium 1.18 mmol/L (1.15-1.35)
[2020-09-14 04:45] LABS: % Iron Saturation 49 % (20-55); Iron 103 mcg/dL (65-175); Transferrin 151 mg/dL (203-362)
[2020-09-14 04:53] LABS: Hepatitis B Surface Antibody < 3.10 mIU/mL
[2020-09-14 05:03] LABS: Ferritin 553 ng/mL (20-250)
[2020-09-14 05:04] LABS: Hepatitis B Surface Antigen Nonreactive (Nonreactive)
[2020-09-14 05:32] LABS: Hepatitis B Core IgM Nonreactive (Nonreactive)
[2020-09-14] MEDS ORDERED: 0.9 % Sodium Chloride 250 ML IVC PRN (07:11)
[2020-09-14] MEDS ORDERED: 0.9 % Sodium Chloride 1,000 ML PRIME SCH (07:15)
[2020-09-14] MEDS: amLODIPine 5 MG TABLET PO SCH (08:10)
[2020-09-14] MEDS: Aspirin Enteric Coated 81 MG Tablet PO SCH (08:10)
[2020-09-14] MEDS: OXcarbazepine 150 MG TABLET PO SCH ×2 (08:10→20:48)
[2020-09-14] MEDS: levETIRAcetam 250 MG TABLET PO SCH ×2 (08:10→20:48)
[2020-09-14 09:33] LABS: Prothrombin Time 11.1 Seconds (9.4-12.1)
[2020-09-14] MEDS ORDERED: *HR* Heparin 10,000 UNIT/10 ML VIAL ONE (13:22)
[2020-09-14] MEDS ORDERED: Ergocalciferol (VIT D2) 50,000 UNIT (1.25MG) CAP PO SCH (15:00)
[2020-09-14] MEDS ORDERED: Lacri-Lube 3.5 GM TUBE BOTH EYES PRN (16:11)
[2020-09-15 05:17] LABS: Hematocrit 18.4 % (37.5-50.1); Hemoglobin 6.6 g/dL (12.9-16.9)
[2020-09-15 05:34] LABS: Calcium 8.1 mg/dL (8.6-10.3); Magnesium 1.9 mg/dL (1.6-2.6); Phosphorous 4.3 mg/dL (2.7-4.5); Potassium 4.1 mEq/L (3.5-5.1)
[2020-09-15 05:35] LABS: VBG Ionized Calcium 1.08 mmol/L (1.15-1.35)
[2020-09-15] MEDS ORDERED: 0.9 % Sodium Chloride 250 ML IVC PRN (07:06)
[2020-09-15] MEDS ORDERED: 0.9 % Sodium Chloride 250 ML ONE (07:15)
[2020-09-15] MEDS ORDERED: D5% in Water 1,000 ML IVC SCH (07:45)
[2020-09-15] MEDS ORDERED: *HR* Heparin 10,000 UNIT/10 ML VIAL ONE (10:50)
[2020-09-15] MEDS: levETIRAcetam 250 MG TABLET PO SCH ×2 (11:13→20:00)
[2020-09-15] MEDS ORDERED: *HR* FentaNYL (PF) 100 MCG/2 ML VIAL ONE (12:35)
[2020-09-15] MEDS ORDERED: *HR* Midazolam HCl 2 MG/2 ML VIAL ONE (12:35)
[2020-09-15] MEDS ORDERED: 0.9 % Sodium Chloride 500 ML ONE (12:35)
[2020-09-15] MEDS ORDERED: *HR* FentaNYL (PF) 100 MCG/2 ML VIAL IVP ONE (12:39)
[2020-09-15] MEDS ORDERED: *HR* Midazolam HCl 2 MG/2 ML VIAL IVP ONE (12:39)
[2020-09-15] MEDS ORDERED: CeFAZolin 2,000 MG/50 ML BAG IVPB ONE (12:40)
[2020-09-15] MEDS ORDERED: *HR* Heparin 5,000 UNIT/ML VIAL ONE (12:57)
[2020-09-15] MEDS: Aspirin Enteric Coated 81 MG Tablet PO SCH (12:58)
[2020-09-15] MEDS: *HR* Heparin 5,000 UNIT/ML VIAL SQ SCH ×2 (12:58→19:56)
[2020-09-15] MEDS: OXcarbazepine 150 MG TABLET PO SCH (13:00)
[2020-09-15] MEDS: amLODIPine 5 MG TABLET PO SCH (14:11)
[2020-09-15] MEDS: Acetaminophen 325 MG TABLET PO PRN ×2 (16:48→23:39)
[2020-09-15 17:01] LABS: Hematocrit 26.9 % (37.5-50.1)
[2020-09-15 17:04] LABS: Hemoglobin 9.4 g/dL (12.9-16.9)
[2020-09-16 07:21] LABS: Hematocrit 22.6 % (37.5-50.1)
[2020-09-16 07:24] LABS: Hemoglobin 7.7 g/dL (12.9-16.9)
[2020-09-16] MEDS ORDERED: *HR* Heparin 10,000 UNIT/10 ML VIAL IV PRN (07:39)
[2020-09-16] MEDS ORDERED: 0.9 % Sodium Chloride 250 ML IVC PRN (07:39)
[2020-09-16 07:40] LABS: Calcium 8.4 mg/dL (8.6-10.3); Magnesium 1.6 mg/dL (1.6-2.6); Phosphorous 3.8 mg/dL (2.7-4.5); Potassium 4.1 mEq/L (3.5-5.1)
[2020-09-16] MEDS: *HR* Heparin 5,000 UNIT/ML VIAL SQ SCH ×2 (07:46→19:24)
[2020-09-16] MEDS: amLODIPine 5 MG TABLET PO SCH (07:49)
[2020-09-16] MEDS: Aspirin Enteric Coated 81 MG Tablet PO SCH (07:49)
[2020-09-16] MEDS: levETIRAcetam 250 MG TABLET PO SCH ×2 (07:51→19:50)
[2020-09-16] MEDS: Acetaminophen 325 MG TABLET PO PRN (10:24)
[2020-09-17] MEDS: Acetaminophen 325 MG TABLET PO PRN (01:45)
[2020-09-17 02:41] LABS: Hematocrit 25.2 % (37.5-50.1); Hemoglobin 8.8 g/dL (12.9-16.9)
[2020-09-17 03:04] LABS: Calcium 8.9 mg/dL (8.6-10.3); Magnesium 1.6 mg/dL (1.6-2.6); Phosphorous 2.8 mg/dL (2.7-4.5)
[2020-09-17] MEDS: Melatonin 3 MG TABLET PO PRN (05:30)
[2020-09-17] MEDS: Aspirin Enteric Coated 81 MG Tablet PO SCH (07:49)
[2020-09-17] MEDS: amLODIPine 5 MG TABLET PO SCH (07:50)
[2020-09-17] MEDS: levETIRAcetam 250 MG TABLET PO SCH ×2 (07:50→19:46)
[2020-09-17] MEDS: *HR* Heparin 5,000 UNIT/ML VIAL SQ SCH ×2 (07:57→19:47)
[2020-09-18] MEDS: Melatonin 3 MG TABLET PO PRN (00:48)
[2020-09-18 06:54] LABS: Hematocrit 24.8 % (37.5-50.1); Hemoglobin 8.1 g/dL (12.9-16.9)
[2020-09-18 07:24] LABS: Magnesium 1.7 mg/dL (1.6-2.6)
[2020-09-18 07:25] LABS: Calcium 9.3 mg/dL (8.6-10.3)
[2020-09-18] MEDS ORDERED: *HR* Heparin 10,000 UNIT/10 ML VIAL IV PRN (07:33)
[2020-09-18] MEDS ORDERED: 0.9 % Sodium Chloride 250 ML IVC PRN (07:33)
[2020-09-18] MEDS: *HR* Heparin 5,000 UNIT/ML VIAL SQ SCH (07:37)
[2020-09-18] MEDS: amLODIPine 5 MG TABLET PO SCH (08:29)
[2020-09-18] MEDS: Aspirin Enteric Coated 81 MG Tablet PO SCH (08:29)
[2020-09-18] MEDS: levETIRAcetam 250 MG TABLET PO SCH (08:30)
[2020-09-18] MEDS: Acetaminophen 325 MG TABLET PO PRN (10:27)
[2020-09-18 12:19] VITALS: BP 154/95
[2020-09-18] MEDS ORDERED: *HR* Heparin 5,000 UNIT/ML VIAL SQ SCH (18:00)
== END 2020-09-18 17:02 | disposition home or self-care (01) | DRG 640 ==
LOC: EMEROOARM 12:08 → ICNU 15:53 → SUATTDRO 15:53 → ICNU 16:03 → 2ANU 09-12 18:52
PROVIDERS: ADMIT Internal Medicine; ATTEND Internal Medicine
PROC: IRPERMA (2020-09-15 12:00)

== ENCOUNTER 2020-11-20 00:40 | Inpatient (IN) ==
[2020-11-20] MEDS ORDERED: Naloxone 0.4 MG/ML INJ IVP PRN (02:57)
[2020-11-20] MEDS ORDERED: Ondansetron 4 MG/2 ML VIAL IVP PRN (02:57)
[2020-11-20] MEDS: niCARdipine 20 MG/200 ML MLS IVC SCH ×2 (05:29→09:09)
[2020-11-20 05:49] LABS: INR 1.1; Prothrombin Time 12.2 Seconds (9.4-12.1)
[2020-11-20 05:53] LABS: Activated Partial Thrombo Time 18.8 Seconds (26.0-36.0)
[2020-11-20 06:00] LABS: Albumin 3.4 g/dL (3.5-5.7); Bilirubin,Total 0.4 mg/dL (0.3-1.0); Calcium 8.8 mg/dL (8.6-10.3); Globulin 1.7 g/dL (2.4-3.5); Phosphorous 3.1 mg/dL (2.7-4.5); Total Protein 5.1 g/dL (6.4-8.9)
[2020-11-20] MEDS ORDERED: Aspirin 325 MG TABLET PO ONE (06:26)
[2020-11-20] MEDS ORDERED: Perflutren Lipid Microsphere 1.3 ML in 0.9 % Sodium Chloride 8.7 ML IVP PRN (06:26)
[2020-11-20 07:24] LABS: Hematocrit 29.2 % (37.5-50.1); Hemoglobin 10.1 g/dL (12.9-16.9); Mean Corpuscular HGB Conc 34.6 g/dL (31.6-35.5); Mean Corpuscular Hemoglobin 34.5 pg (28.0-33.3); Mean Corpuscular Volume 99.7 fL (83.0-100.0); Mean Platelet Volume 10.1 fL (9.4-12.4); Platelet Count 152 K/mcL (140-400); Red Blood Count 2.93 M/mcL (4.19-5.50); Red Cell Distribution Width 15.2 % (11.5-14.5); White Blood Count 6.2 K/mcL (4.3-11.1)
[2020-11-20] MEDS ORDERED: *HR* Heparin 5,000 UNIT/ML VIAL IVP ONE (07:45)
[2020-11-20] MEDS ORDERED: *HR* Heparin 5,000 UNIT/ML VIAL IVP PRN (07:45)
[2020-11-20 07:56] LABS: Hepatitis B Surface Antibody < 3.10 mIU/mL
[2020-11-20] MEDS ORDERED: carvediloL 6.25 MG TABLET PO SCH ×2 (08:00→09:00)
[2020-11-20 08:06] LABS: Hepatitis B Surface Antigen Nonreactive (Nonreactive)
[2020-11-20] MEDS ORDERED: carvediloL 25 MG TABLET PO SCH (08:57)
[2020-11-20 09:04] LABS: Hematocrit 28.8 % (37.5-50.1); Hemoglobin 10.1 g/dL (12.9-16.9); Mean Corpuscular HGB Conc 35.1 g/dL (31.6-35.5); Mean Corpuscular Hemoglobin 34.5 pg (28.0-33.3); Mean Corpuscular Volume 98.3 fL (83.0-100.0); Mean Platelet Volume 9.9 fL (9.4-12.4); Platelet Count 158 K/mcL (140-400); Red Blood Count 2.93 M/mcL (4.19-5.50); Red Cell Distribution Width 15.4 % (11.5-14.5); White Blood Count 6.4 K/mcL (4.3-11.1)
[2020-11-20 09:06] LABS: Heparin anti-factor XA UFH < 0.04 IU/mL (0.30-0.70)
[2020-11-20] MEDS: Heparin 25,000UNIT/250ML 1/2NS 25,000 UNIT/250 ML IV.SOLN IVC SCH (09:09)
[2020-11-20] MEDS: levETIRAcetam 250 MG TABLET PO SCH ×2 (09:10→20:40)
[2020-11-20] MEDS ORDERED: 0.9 % Sodium Chloride 250 ML IVC PRN (09:59)
[2020-11-20] MEDS ORDERED: 0.9 % Sodium Chloride 1,000 ML PRIME SCH (10:00)
[2020-11-20] MEDS ORDERED: amLODIPine 5 MG TABLET PO SCH (12:30)
[2020-11-20] MEDS ORDERED: lisinopriL 5 MG TABLET PO SCH (16:00)
[2020-11-20] MEDS ORDERED: NIFEdipine XL (24 HR) 30 MG TAB.ER.24 PO SCH (16:15)
[2020-11-20] MEDS: hydrALAZINE 25 MG TABLET PO SCH (17:02)
[2020-11-20] MEDS: carvediloL 6.25 MG TABLET PO SCH (17:03)
[2020-11-20 18:04] LABS: Chol/HDL Ratio 4.3 (0-4.9)
[2020-11-20 18:09] LABS: Troponin I 0.48 ng/mL (< 0.04)
[2020-11-21 00:38] LABS: Hematocrit 26.6 % (37.5-50.1); Hemoglobin 9.2 g/dL (12.9-16.9); Mean Corpuscular HGB Conc 34.6 g/dL (31.6-35.5); Mean Corpuscular Hemoglobin 34.3 pg (28.0-33.3); Mean Corpuscular Volume 99.3 fL (83.0-100.0); Mean Platelet Volume 9.1 fL (9.4-12.4); Platelet Count 128 K/mcL (140-400); Red Blood Count 2.68 M/mcL (4.19-5.50); Red Cell Distribution Width 15.1 % (11.5-14.5)
[2020-11-21 00:57] LABS: Calcium 8.2 mg/dL (8.6-10.3); Potassium 3.8 mEq/L (3.5-5.1)
[2020-11-21] MEDS: *HR* Heparin 5,000 UNIT/ML VIAL IVP PRN ×2 (01:25→16:59)
[2020-11-21] MEDS ORDERED: *HR* Metoprolol 5 MG/5 ML VIAL IVP ONE (04:25)
[2020-11-21] MEDS: carvediloL 6.25 MG TABLET PO SCH (06:27)
[2020-11-21] MEDS ORDERED: *HR* Labetalol 20 MG/4 ML SYRINGE IVP ONE ×2 (07:26→22:46)
[2020-11-21 09:06] LABS: Troponin I 0.49 ng/mL (< 0.04)
[2020-11-21] MEDS: carvediloL 25 MG TABLET PO SCH ×2 (09:41→16:02)
[2020-11-21] MEDS: Aspirin 81 MG TAB.CHEW PO SCH (09:41)
[2020-11-21] MEDS: lisinopriL 20 MG TABLET PO SCH (09:41)
[2020-11-21] MEDS: NIFEdipine XL (24 HR) 30 MG TAB.ER.24 PO SCH (09:42)
[2020-11-21] MEDS: levETIRAcetam 250 MG TABLET PO SCH ×2 (09:42→20:05)
[2020-11-21] MEDS: hydrALAZINE 25 MG TABLET PO SCH ×3 (09:42→16:03)
[2020-11-21] MEDS: Heparin 25,000UNIT/250ML 1/2NS 25,000 UNIT/250 ML IV.SOLN IVC SCH (16:04)
[2020-11-21] MEDS ORDERED: hydrALAZINE 25 MG TABLET PO ONE (22:00)
[2020-11-22 00:37] LABS: Calcium 8.8 mg/dL (8.6-10.3); Potassium 4.1 mEq/L (3.5-5.1)
[2020-11-22] MEDS ORDERED: *HR* Labetalol 20 MG/4 ML SYRINGE IVP ONE (02:27)
[2020-11-22] MEDS: Acetaminophen 325 MG TABLET PO PRN (02:39)
[2020-11-22 06:44] LABS: Hematocrit 24.5 % (37.5-50.1); Hemoglobin 8.3 g/dL (12.9-16.9); Mean Corpuscular HGB Conc 33.9 g/dL (31.6-35.5); Mean Corpuscular Hemoglobin 34.2 pg (28.0-33.3); Mean Corpuscular Volume 100.8 fL (83.0-100.0); Mean Platelet Volume 9.9 fL (9.4-12.4); Platelet Count 110 K/mcL (140-400); Red Blood Count 2.43 M/mcL (4.19-5.50); Red Cell Distribution Width 14.8 % (11.5-14.5); White Blood Count 4.2 K/mcL (4.3-11.1)
[2020-11-22] MEDS ORDERED: *HR* Heparin 10,000 UNIT/10 ML VIAL IV PRN (07:53)
[2020-11-22] MEDS ORDERED: 0.9 % Sodium Chloride 250 ML IVC PRN (07:53)
[2020-11-22] MEDS ORDERED: 0.9 % Sodium Chloride 1,000 ML PRIME SCH (08:00)
[2020-11-22] MEDS ORDERED: *HR* Metoprolol 5 MG/5 ML VIAL IVP PRN (08:07)
[2020-11-22] MEDS: levETIRAcetam 250 MG TABLET PO SCH ×2 (08:13→21:10)
[2020-11-22] MEDS: Aspirin 81 MG TAB.CHEW PO SCH (08:13)
[2020-11-22] MEDS: hydrALAZINE 25 MG TABLET PO SCH ×3 (08:14→18:55)
[2020-11-22] MEDS: carvediloL 25 MG TABLET PO SCH ×2 (08:14→16:52)
[2020-11-22 11:03] LABS: Adenovirus F 40/41 PCR Not detected (Not detect); Astrovirus PCR Not detected (Not detect); C.difficile Toxin A/B Gene PCR Not detected (Not detect); Campylobacter by PCR Not detected (Not detect); Cryptosporidium by PCR Not detected (Not detect); Cyclospora cayetanensis PCR Not detected (Not detect); E. coli O157 by PCR Not detected (Not detect); Entamoeba histolytica PCR Not detected (Not detect); Enteroaggregative E.coli(EAEC) Not detected (Not detect); Enteropathogenic E.coli(EPEC) Not detected (Not detect); Enterotoxigenic E.coli (ETEC) Not detected (Not detect); Giardia lamblia PCR Not detected (Not detect); Norovirus GI/GII PCR Not detected (Not detect); Plesiomonas shigelloides PCR Not detected (Not detect); Rotavirus A PCR Not detected (Not detect); Salmonella PCR Not detected (Not detect); Sapovirus PCR Not detected (Not detect); Shig/EnteroinvasiveE coli EIEC Not detected (Not detect); Shigalike tox-prod E coli STEC Not detected (Not detect); Vibrio PCR Not detected (Not detect); Vibrio cholerae PCR Not detected (Not detect); Yersinia enterocolitica PCR Not detected (Not detect)
[2020-11-22] MEDS: NIFEdipine XL (24 HR) 30 MG TAB.ER.24 PO SCH (12:42)
[2020-11-22] MEDS: lisinopriL 20 MG TABLET PO SCH (12:43)
[2020-11-22] MEDS ORDERED: NIFEdipine XL (24 HR) 30 MG TAB.ER.24 PO ONE (15:05)
[2020-11-22] MEDS: *HR* Heparin 5,000 UNIT/ML VIAL SQ SCH (16:54)
[2020-11-23] MEDS: *HR* Heparin 5,000 UNIT/ML VIAL SQ SCH ×2 (04:32→17:04)
[2020-11-23] MEDS: *HR* Labetalol 20 MG/4 ML SYRINGE IVP PRN (04:47)
[2020-11-23] MEDS ORDERED: 0.9 % Sodium Chloride 250 ML IVC PRN (07:41)
[2020-11-23] MEDS ORDERED: *HR* Heparin 10,000 UNIT/10 ML VIAL IV PRN (07:41)
[2020-11-23] MEDS ORDERED: 0.9 % Sodium Chloride 1,000 ML PRIME SCH (07:45)
[2020-11-23] MEDS: lisinopriL 20 MG TABLET PO SCH (08:07)
[2020-11-23] MEDS: Aspirin 81 MG TAB.CHEW PO SCH (08:08)
[2020-11-23] MEDS: levETIRAcetam 250 MG TABLET PO SCH ×2 (08:08→20:38)
[2020-11-23] MEDS: hydrALAZINE 25 MG TABLET PO SCH ×3 (08:13→17:03)
[2020-11-23] MEDS: carvediloL 25 MG TABLET PO SCH ×2 (08:13→17:02)
[2020-11-23] MEDS: NIFEdipine XL (24 HR) 60 MG TAB.ER.24 PO SCH (08:14)
[2020-11-23 16:13] LABS: Basophils # 0.1 K/mcL (0.0-0.2); Eosinophils % 0.3 %; Hematocrit 32.1 % (37.5-50.1); Immature Granulocytes % 0.2 % (0-4); Lymphocytes # 0.6 K/mcL (0.6-4.6); Mean Corpuscular HGB Conc 34.6 g/dL (31.6-35.5); Mean Corpuscular Hemoglobin 34.6 pg (28.0-33.3); Mean Platelet Volume 10.6 fL (9.4-12.4); Monocytes # 0.5 K/mcL (0.0-1.3); Monocytes % 8.7 %; Neutrophils # 4.9 K/mcL (1.6-8.9); Platelet Count 141 K/mcL (140-400); Red Blood Count 3.21 M/mcL (4.19-5.50); Red Cell Distribution Width 14.6 % (11.5-14.5); Segmented Neutrophils % 79.8 %; White Blood Count 6.2 K/mcL (4.3-11.1)
[2020-11-23 16:14] LABS: Hemoglobin 11.1 g/dL (12.9-16.9)
[2020-11-23 16:32] LABS: Potassium 4.4 mEq/L (3.5-5.1)
[2020-11-23] MEDS: hydrOXYzine pamoate 25 MG CAPSULE PO PRN (22:29)
[2020-11-24 01:58] LABS: Basophils % 0.6 %; Eosinophils % 0.2 %; Hematocrit 28.5 % (37.5-50.1); Hemoglobin 9.6 g/dL (12.9-16.9); Immature Granulocytes % 0.2 % (0-4); Lymphocytes # 0.9 K/mcL (0.6-4.6); Lymphocytes % 14.6 %; Mean Corpuscular HGB Conc 33.7 g/dL (31.6-35.5); Mean Corpuscular Volume 101.1 fL (83.0-100.0); Mean Platelet Volume 10.6 fL (9.4-12.4); Monocytes # 0.9 K/mcL (0.0-1.3); Monocytes % 14.4 %; Neutrophils # 4.3 K/mcL (1.6-8.9); Platelet Count 126 K/mcL (140-400); Red Blood Count 2.82 M/mcL (4.19-5.50); Red Cell Distribution Width 14.7 % (11.5-14.5); White Blood Count 6.2 K/mcL (4.3-11.1)
[2020-11-24 02:18] LABS: % Iron Saturation 47 % (20-55); Calcium 9.1 mg/dL (8.6-10.3); Iron 100 mcg/dL (65-175); Potassium 4.2 mEq/L (3.5-5.1); Transferrin 152 mg/dL (203-362)
[2020-11-24] MEDS: *HR* Labetalol 20 MG/4 ML SYRINGE IVP PRN ×2 (03:28→23:55)
[2020-11-24] MEDS: *HR* Heparin 5,000 UNIT/ML VIAL SQ SCH ×2 (06:53→17:31)
[2020-11-24] MEDS ORDERED: 0.9 % Sodium Chloride 250 ML IVC PRN (07:17)
[2020-11-24] MEDS ORDERED: *HR* Heparin 10,000 UNIT/10 ML VIAL IV PRN (07:17)
[2020-11-24] MEDS ORDERED: 0.9 % Sodium Chloride 1,000 ML PRIME SCH (07:30)
[2020-11-24] MEDS: Aspirin 81 MG TAB.CHEW PO SCH (07:40)
[2020-11-24] MEDS: hydrALAZINE 25 MG TABLET PO SCH ×3 (07:40→17:32)
[2020-11-24] MEDS: NIFEdipine XL (24 HR) 60 MG TAB.ER.24 PO SCH (07:40)
[2020-11-24] MEDS: carvediloL 25 MG TABLET PO SCH ×2 (07:40→17:32)
[2020-11-24] MEDS: lisinopriL 20 MG TABLET PO SCH (07:40)
[2020-11-24] MEDS: levETIRAcetam 250 MG TABLET PO SCH ×2 (07:41→22:17)
[2020-11-24] MEDS: Heparin 25,000UNIT/250ML 1/2NS 25,000 UNIT/250 ML IV.SOLN IVC SCH (09:57)
[2020-11-24] MEDS: hydrOXYzine pamoate 25 MG CAPSULE PO PRN (22:16)
[2020-11-24] MEDS: Acetaminophen 325 MG TABLET PO PRN (22:16)
[2020-11-25 02:32] LABS: Basophils # 0.1 K/mcL (0.0-0.2); Eosinophils % 0.7 %; Hematocrit 30.2 % (37.5-50.1); Hemoglobin 10.3 g/dL (12.9-16.9); Lymphocytes # 1.1 K/mcL (0.6-4.6); Lymphocytes % 18.7 %; Mean Corpuscular HGB Conc 34.1 g/dL (31.6-35.5); Mean Corpuscular Hemoglobin 34.6 pg (28.0-33.3); Mean Corpuscular Volume 101.3 fL (83.0-100.0); Mean Platelet Volume 10.5 fL (9.4-12.4); Monocytes # 0.8 K/mcL (0.0-1.3); Monocytes % 13.7 %; Platelet Count 118 K/mcL (140-400); Red Blood Count 2.98 M/mcL (4.19-5.50); Red Cell Distribution Width 14.6 % (11.5-14.5); Segmented Neutrophils % 65.9 %
[2020-11-25 02:51] LABS: Calcium 9.1 mg/dL (8.6-10.3); Potassium 4.1 mEq/L (3.5-5.1)
[2020-11-25] MEDS: *HR* Labetalol 20 MG/4 ML SYRINGE IVP PRN (04:19)
[2020-11-25] MEDS: *HR* Heparin 5,000 UNIT/ML VIAL SQ SCH ×2 (05:12→17:47)
[2020-11-25] MEDS: NIFEdipine XL (24 HR) 60 MG TAB.ER.24 PO SCH (07:58)
[2020-11-25] MEDS: levETIRAcetam 250 MG TABLET PO SCH ×2 (07:58→20:03)
[2020-11-25] MEDS: hydrALAZINE 25 MG TABLET PO SCH ×3 (07:58→17:46)
[2020-11-25] MEDS: lisinopriL 20 MG TABLET PO SCH (07:59)
[2020-11-25] MEDS: Aspirin 81 MG TAB.CHEW PO SCH (07:59)
[2020-11-25] MEDS ORDERED: carvediloL 25 MG TABLET PO SCH (08:00)
[2020-11-25] MEDS: carvediloL 25 MG TABLET PO SCH (17:46)
[2020-11-26] MEDS: *HR* Labetalol 20 MG/4 ML SYRINGE IVP PRN ×2 (00:45→05:30)
[2020-11-26 04:30] LABS: Basophils # 0.1 K/mcL (0.0-0.2); Basophils % 1.6 %; Eosinophils # 0.1 K/mcL (0.0-0.6); Eosinophils % 2.8 %; Hematocrit 27.5 % (37.5-50.1); Hemoglobin 9.4 g/dL (12.9-16.9); Immature Granulocytes % 0.2 % (0-4); Lymphocytes # 1.3 K/mcL (0.6-4.6); Lymphocytes % 24.7 %; Mean Corpuscular HGB Conc 34.2 g/dL (31.6-35.5); Mean Corpuscular Hemoglobin 34.3 pg (28.0-33.3); Mean Corpuscular Volume 100.4 fL (83.0-100.0); Mean Platelet Volume 10.7 fL (9.4-12.4); Monocytes # 0.7 K/mcL (0.0-1.3); Neutrophils # 2.9 K/mcL (1.6-8.9); Platelet Count 111 K/mcL (140-400); Red Blood Count 2.74 M/mcL (4.19-5.50); Red Cell Distribution Width 14.3 % (11.5-14.5); Segmented Neutrophils % 56.7 %; White Blood Count 5.1 K/mcL (4.3-11.1)
[2020-11-26 04:48] LABS: Calcium 9.1 mg/dL (8.6-10.3); Potassium 4.6 mEq/L (3.5-5.1)
[2020-11-26] MEDS: *HR* Heparin 5,000 UNIT/ML VIAL SQ SCH ×2 (05:30→17:01)
[2020-11-26] MEDS: levETIRAcetam 250 MG TABLET PO SCH ×2 (07:53→21:01)
[2020-11-26] MEDS: hydrALAZINE 25 MG TABLET PO SCH ×3 (07:54→17:00)
[2020-11-26] MEDS: lisinopriL 20 MG TABLET PO SCH (07:54)
[2020-11-26] MEDS: Aspirin 81 MG TAB.CHEW PO SCH (07:54)
[2020-11-26] MEDS: NIFEdipine XL (24 HR) 60 MG TAB.ER.24 PO SCH (07:54)
[2020-11-26] MEDS: carvediloL 25 MG TABLET PO SCH ×2 (07:54→17:00)
[2020-11-27 02:50] LABS: Calcium 8.4 mg/dL (8.6-10.3); Potassium 4.7 mEq/L (3.5-5.1)
[2020-11-27] MEDS ORDERED: *HR* Heparin 10,000 UNIT/10 ML VIAL IV PRN ×2 (08:09)
[2020-11-27] MEDS ORDERED: 0.9 % Sodium Chloride 250 ML IVC PRN (08:09)
[2020-11-27] MEDS: *HR* Heparin 5,000 UNIT/ML VIAL SQ SCH (09:35)
[2020-11-27 14:17] VITALS: BP 165/115
[2020-11-27] MEDS: Acetaminophen 325 MG TABLET PO PRN (14:25)
[2020-11-27] MEDS: levETIRAcetam 250 MG TABLET PO SCH (14:25)
[2020-11-27] MEDS: NIFEdipine XL (24 HR) 60 MG TAB.ER.24 PO SCH (14:26)
[2020-11-27] MEDS: hydrALAZINE 25 MG TABLET PO SCH ×2 (14:26→14:27)
[2020-11-27] MEDS: lisinopriL 20 MG TABLET PO SCH (14:26)
[2020-11-27] MEDS: Aspirin 81 MG TAB.CHEW PO SCH (14:26)
[2020-11-27] MEDS: carvediloL 25 MG TABLET PO SCH (14:26)
== END 2020-11-27 16:43 | disposition home or self-care (01) | DRG 280 ==
LOC: 2NENU → SUATTDRO 02:27
PROVIDERS: ADMIT Student in an Organized Health Care Education/Training Program; ATTEND Internal Medicine

== ENCOUNTER 2021-02-04 07:33 | Inpatient (IN) ==
[2021-02-04] MEDS ORDERED: Naloxone 0.4 MG/ML INJ IVP PRN (10:52)
[2021-02-04] MEDS ORDERED: Ondansetron 4 MG/2 ML VIAL IVP PRN (10:52)
[2021-02-04] MEDS ORDERED: *HR* LORazepam 2 MG/ML VIAL IVP PRN (10:59)
[2021-02-04] MEDS: niCARdipine 20 MG/200 ML MLS IVC SCH (11:16)
[2021-02-04] MEDS ORDERED: 0.9 % Sodium Chloride 250 ML IVC PRN (11:42)
[2021-02-04] MEDS ORDERED: *HR* Heparin 10,000 UNIT/10 ML VIAL IV PRN (11:42)
[2021-02-04] MEDS ORDERED: 0.9 % Sodium Chloride 1,000 ML PRIME SCH (11:45)
[2021-02-04] MEDS ORDERED: 0.9 % Sodium Chloride 1,000 ML ONE (11:48)
[2021-02-04] MEDS: cefTRIAXone 1,000 MG in 0.9 % Sodium Chloride Mini Bag 100 ML IVPB SCH (12:11)
[2021-02-04] MEDS: Azithromycin 500 MG in 0.9 % Sodium Chloride 250 ML IVPB SCH (12:44)
[2021-02-04 13:12] LABS: Hepatitis B Surface Antibody < 3.10 mIU/mL
[2021-02-04 13:24] LABS: Hepatitis B Surface Antigen Nonreactive (Nonreactive)
[2021-02-04] MEDS: Phenytoin 200 MG in Equashield Syringe 1 EACH IVP SCH (13:27)
[2021-02-04] MEDS: Ipratropium/Albuterol Neb 3 ML IH SCH ×3 (15:40→22:37)
[2021-02-04] MEDS ORDERED: Valproic Acid INJ 1,000 MG in 0.9 % Sodium Chloride 100 ML IVPB ONE (17:12)
[2021-02-04] MEDS ORDERED: levETIRAcetam 1,000 MG in 0.9 % Sodium Chloride 100 ML IVPB SCH (21:00)
[2021-02-05] MEDS: niCARdipine 20 MG/200 ML MLS IVC SCH ×5 (00:51→18:00)
[2021-02-05] MEDS: Phenytoin 200 MG in Equashield Syringe 1 EACH IVP SCH (01:23)
[2021-02-05] MEDS: Ipratropium/Albuterol Neb 3 ML IH SCH ×4 (03:48→22:59)
[2021-02-05 07:50] LABS: Eosinophils % 6.9 %; Lymphocytes % 15.1 %
[2021-02-05 07:52] LABS: Basophils # 0.1 K/mcL (0.0-0.2); Eosinophils # 0.4 K/mcL (0.0-0.6); Hematocrit 27.8 % (37.5-50.1); Hemoglobin 9.3 g/dL (12.9-16.9); Immature Granulocytes % 0.3 % (0-4); Immature Platelets 3.6 % (1.1-6.1); Lymphocytes # 0.9 K/mcL (0.6-4.6); Mean Corpuscular HGB Conc 33.5 g/dL (31.6-35.5); Mean Corpuscular Hemoglobin 35.2 pg (28.0-33.3); Mean Corpuscular Volume 105.3 fL (83.0-100.0); Mean Platelet Volume 11.3 fL (9.4-12.4); Monocytes % 10.8 %; Red Blood Count 2.64 M/mcL (4.19-5.50); Segmented Neutrophils % 65.9 %
[2021-02-05 07:57] LABS: Monocytes # 0.7 K/mcL (0.0-1.3); Platelet Count 68 K/mcL (140-400)
[2021-02-05] MEDS ORDERED: carvediloL 25 MG TABLET PO SCH (08:00)
[2021-02-05 08:04] LABS: Calcium 8.9 mg/dL (8.6-10.3); Phosphorous 3.4 mg/dL (2.7-4.5); Potassium 3.9 mEq/L (3.5-5.1)
[2021-02-05] MEDS ORDERED: *HR* Heparin 10,000 UNIT/10 ML VIAL IV PRN (08:27)
[2021-02-05] MEDS ORDERED: 0.9 % Sodium Chloride 250 ML IVC PRN (08:27)
[2021-02-05] MEDS ORDERED: Valproic Acid INJ 500 MG in 0.9 % Sodium Chloride 100 ML IVPB SCH (09:00)
[2021-02-05] MEDS ORDERED: lisinopriL 20 MG TABLET PO SCH (09:00)
[2021-02-05] MEDS: Aspirin Enteric Coated 81 MG Tablet PO SCH (09:48)
[2021-02-05] MEDS: levETIRAcetam 250 MG TABLET PO SCH ×2 (09:49→21:07)
[2021-02-05] MEDS: Isosorbide MONOnitrate (24 HR) 30 MG TAB.ER.24H PO SCH (09:49)
[2021-02-05] MEDS: hydrALAZINE 25 MG TABLET PO SCH ×3 (09:49→18:00)
[2021-02-05] MEDS: Loratadine 10 MG TABLET PO SCH (09:49)
[2021-02-05] MEDS: NIFEdipine XL (24 HR) 60 MG TAB.ER.24 PO SCH (10:08)
[2021-02-05] MEDS: cefTRIAXone 1,000 MG in 0.9 % Sodium Chloride Mini Bag 100 ML IVPB SCH (18:00)
[2021-02-05] MEDS: carvediloL 25 MG TABLET PO SCH (18:00)
[2021-02-05] MEDS: Azithromycin 500 MG in 0.9 % Sodium Chloride 250 ML IVPB SCH (18:30)
[2021-02-05] MEDS: Divalproex Sodium 125 MG Sprinkle Capsule (DR) PO SCH (21:07)
[2021-02-05] MEDS: lisinopriL 20 MG TABLET PO SCH (21:08)
[2021-02-06] MEDS: Ipratropium/Albuterol Neb 3 ML IH SCH ×4 (04:00→22:38)
[2021-02-06] MEDS: niCARdipine 20 MG/200 ML MLS IVC SCH ×2 (04:06→05:30)
[2021-02-06 06:05] LABS: Eosinophils % 6.7 %
[2021-02-06 06:06] LABS: Basophils % 0.5 %; Eosinophils # 0.6 K/mcL (0.0-0.6); Hematocrit 26.9 % (37.5-50.1); Hemoglobin 9.4 g/dL (12.9-16.9); Immature Granulocytes % 0.1 % (0-4); Immature Platelets 3.5 % (1.1-6.1); Lymphocytes # 0.9 K/mcL (0.6-4.6); Lymphocytes % 10.7 %; Mean Corpuscular HGB Conc 34.9 g/dL (31.6-35.5); Mean Corpuscular Hemoglobin 36.7 pg (28.0-33.3); Mean Corpuscular Volume 105.1 fL (83.0-100.0); Mean Platelet Volume 11.2 fL (9.4-12.4); Neutrophils # 6.2 K/mcL (1.6-8.9); Red Blood Count 2.56 M/mcL (4.19-5.50); Red Cell Distribution Width 13.5 % (11.5-14.5); White Blood Count 8.7 K/mcL (4.3-11.1)
[2021-02-06 06:08] LABS: Platelet Count 69 K/mcL (140-400)
[2021-02-06 06:29] LABS: Potassium 3.7 mEq/L (3.5-5.1)
[2021-02-06] MEDS: Divalproex Sodium 125 MG Sprinkle Capsule (DR) PO SCH ×2 (08:00→19:49)
[2021-02-06] MEDS: Isosorbide MONOnitrate (24 HR) 30 MG TAB.ER.24H PO SCH (08:01)
[2021-02-06] MEDS: Aspirin Enteric Coated 81 MG Tablet PO SCH (08:01)
[2021-02-06] MEDS: Loratadine 10 MG TABLET PO SCH (08:01)
[2021-02-06] MEDS: NIFEdipine XL (24 HR) 60 MG TAB.ER.24 PO SCH (08:01)
[2021-02-06] MEDS: levETIRAcetam 250 MG TABLET PO SCH ×2 (08:01→19:49)
[2021-02-06] MEDS: lisinopriL 20 MG TABLET PO SCH ×2 (08:01→19:49)
[2021-02-06] MEDS: carvediloL 25 MG TABLET PO SCH ×2 (08:01→17:23)
[2021-02-06] MEDS: hydrALAZINE 25 MG TABLET PO SCH ×3 (08:02→17:23)
[2021-02-06] MEDS: Azithromycin 250 MG TABLET PO SCH (10:49)
[2021-02-06] MEDS: *HR* Labetalol 20 MG/4 ML SYRINGE IVP PRN ×2 (11:00→23:32)
[2021-02-06] MEDS: cefTRIAXone 1,000 MG in 0.9 % Sodium Chloride Mini Bag 100 ML IVPB SCH (11:57)
[2021-02-06] MEDS ORDERED: Acetaminophen 325 MG TABLET PO PRN (23:43)
[2021-02-07] MEDS: Ipratropium/Albuterol Neb 3 ML IH SCH ×4 (04:01→22:14)
[2021-02-07] MEDS: *HR* Labetalol 20 MG/4 ML SYRINGE IVP PRN ×2 (05:39→20:56)
[2021-02-07] MEDS ORDERED: 0.9 % Sodium Chloride 2,000 ML ONE (06:45)
[2021-02-07] MEDS ORDERED: *HR* Heparin 10,000 UNIT/10 ML VIAL IV PRN (07:20)
[2021-02-07] MEDS ORDERED: 0.9 % Sodium Chloride 250 ML IVC PRN (07:20)
[2021-02-07] MEDS: Divalproex Sodium 125 MG Sprinkle Capsule (DR) PO SCH ×2 (07:35→20:55)
[2021-02-07] MEDS: NIFEdipine XL (24 HR) 60 MG TAB.ER.24 PO SCH (07:36)
[2021-02-07] MEDS: hydrALAZINE 25 MG TABLET PO SCH ×3 (07:36→17:39)
[2021-02-07] MEDS: levETIRAcetam 250 MG TABLET PO SCH ×2 (07:36→20:56)
[2021-02-07] MEDS: carvediloL 25 MG TABLET PO SCH ×2 (07:36→17:39)
[2021-02-07] MEDS: Aspirin Enteric Coated 81 MG Tablet PO SCH (07:36)
[2021-02-07] MEDS: Loratadine 10 MG TABLET PO SCH (07:37)
[2021-02-07] MEDS: lisinopriL 20 MG TABLET PO SCH ×2 (07:37→20:56)
[2021-02-07] MEDS: Isosorbide MONOnitrate (24 HR) 30 MG TAB.ER.24H PO SCH (07:37)
[2021-02-07] MEDS: Azithromycin 250 MG TABLET PO SCH (07:37)
[2021-02-07 10:21] LABS: Basophils % 0.6 %; Hemoglobin 9.3 g/dL (12.9-16.9); Red Cell Distribution Width 13.6 % (11.5-14.5)
[2021-02-07 10:23] LABS: Eosinophils # 0.4 K/mcL (0.0-0.6); Eosinophils % 6.5 %; Hematocrit 27.3 % (37.5-50.1); Immature Granulocytes % 0.5 % (0-4); Immature Platelets 4.5 % (1.1-6.1); Lymphocytes # 0.5 K/mcL (0.6-4.6); Lymphocytes % 8.2 %; Mean Corpuscular HGB Conc 34.1 g/dL (31.6-35.5); Mean Corpuscular Hemoglobin 35.6 pg (28.0-33.3); Mean Corpuscular Volume 104.6 fL (83.0-100.0); Mean Platelet Volume 11.3 fL (9.4-12.4); Monocytes # 0.5 K/mcL (0.0-1.3); Monocytes % 7.1 %; Red Blood Count 2.61 M/mcL (4.19-5.50); Segmented Neutrophils % 77.1 %; White Blood Count 6.5 K/mcL (4.3-11.1)
[2021-02-07 10:36] LABS: Platelet Count 59 K/mcL (140-400)
[2021-02-07 10:51] LABS: Calcium 8.9 mg/dL (8.6-10.3); Potassium 4.1 mEq/L (3.5-5.1)
[2021-02-07] MEDS: cefTRIAXone 1,000 MG in 0.9 % Sodium Chloride Mini Bag 100 ML IVPB SCH (12:58)
[2021-02-08] MEDS: *HR* Labetalol 20 MG/4 ML SYRINGE IVP PRN (03:05)
[2021-02-08] MEDS: Ipratropium/Albuterol Neb 3 ML IH SCH ×2 (03:58→10:39)
[2021-02-08] MEDS ORDERED: niCARdipine 20 MG/200 ML MLS IVC SCH (04:15)
[2021-02-08 05:49] LABS: Basophils # 0.1 K/mcL (0.0-0.2); Basophils % 0.6 %; Eosinophils # 0.4 K/mcL (0.0-0.6); Eosinophils % 5.3 %; Hematocrit 29.1 % (37.5-50.1); Hemoglobin 9.7 g/dL (12.9-16.9); Immature Granulocytes % 0.3 % (0-4); Immature Platelets 5.6 % (1.1-6.1); Lymphocytes # 0.8 K/mcL (0.6-4.6); Lymphocytes % 10.4 %; Mean Corpuscular HGB Conc 33.3 g/dL (31.6-35.5); Mean Corpuscular Volume 105.1 fL (83.0-100.0); Mean Platelet Volume 11.7 fL (9.4-12.4); Monocytes # 0.7 K/mcL (0.0-1.3); Monocytes % 9.2 %; Neutrophils # 5.9 K/mcL (1.6-8.9); Red Blood Count 2.77 M/mcL (4.19-5.50); Red Cell Distribution Width 13.2 % (11.5-14.5); Segmented Neutrophils % 74.2 %
[2021-02-08 05:52] LABS: Platelet Count 68 K/mcL (140-400)
[2021-02-08 06:11] LABS: Calcium 9.2 mg/dL (8.6-10.3); Potassium 4.7 mEq/L (3.5-5.1)
[2021-02-08] MEDS: Divalproex Sodium 125 MG Sprinkle Capsule (DR) PO SCH (07:34)
[2021-02-08] MEDS: Azithromycin 250 MG TABLET PO SCH (07:34)
[2021-02-08] MEDS: levETIRAcetam 250 MG TABLET PO SCH (07:35)
[2021-02-08] MEDS: Aspirin Enteric Coated 81 MG Tablet PO SCH (07:36)
[2021-02-08] MEDS: Loratadine 10 MG TABLET PO SCH (07:37)
[2021-02-08] MEDS: Isosorbide MONOnitrate (24 HR) 30 MG TAB.ER.24H PO SCH (07:43)
[2021-02-08] MEDS: carvediloL 25 MG TABLET PO SCH ×2 (07:46→08:54)
[2021-02-08] MEDS: NIFEdipine XL (24 HR) 60 MG TAB.ER.24 PO SCH (07:47)
[2021-02-08] MEDS: hydrALAZINE 25 MG TABLET PO SCH ×3 (07:47→12:23)
[2021-02-08] MEDS: lisinopriL 20 MG TABLET PO SCH ×2 (07:47→08:55)
[2021-02-08 11:41] VITALS: BP 170/119
[2021-02-08] MEDS: cefTRIAXone 1,000 MG in 0.9 % Sodium Chloride Mini Bag 100 ML IVPB SCH (12:21)
== END 2021-02-08 14:56 | disposition home or self-care (01) | DRG 53 ==
LOC: 2NNU 10:28 → SUATTDRO 10:28
PROVIDERS: ADMIT Internal Medicine; ATTEND Family Medicine

== ENCOUNTER 2021-04-09 12:11 | Inpatient (IN) ==
[2021-04-09] MEDS ORDERED: ceFAZolin 1,000 MG in Water for inj. (sterile) 10 ML IVP ONE (12:48)
[2021-04-09] MEDS ORDERED: *HR* Midazolam HCl 2 MG/2 ML VIAL ONE (13:30)
[2021-04-09] MEDS ORDERED: *HR* FentaNYL (PF) 100 MCG/2 ML VIAL ONE ×2 (13:30→15:00)
[2021-04-09] MEDS ORDERED: Lidocaine -MPF 2% 2 ML VIAL ONE ×2 (13:31→14:11)
[2021-04-09] MEDS ORDERED: *HR* Propofol 200 MG/20 ML VIAL IVP ONE (13:31)
[2021-04-09] MEDS ORDERED: Heparin 1,000 UNITS/500 mL 500 ML ONE (13:31)
[2021-04-09] MEDS ORDERED: Acetaminophen IV 1,000 MG/100 ML BAG IVPB ONE (13:33)
[2021-04-09] MEDS ORDERED: Nitroglycerin 0.4 MG TAB.SUBL SL PRN (13:36)
[2021-04-09] MEDS ORDERED: *HR* FentaNYL (PF) 100 MCG/2 ML VIAL IVP PRN (13:36)
[2021-04-09] MEDS ORDERED: Albuterol 2.5 MG/3 ML NEBULIZER IH PRN (13:36)
[2021-04-09] MEDS ORDERED: Ondansetron 4 MG/2 ML VIAL IVP PRN (13:36)
[2021-04-09] MEDS ORDERED: Naloxone 0.4 MG/ML INJ IVP PRN (13:36)
[2021-04-09] MEDS ORDERED: *HR* OxyCODONE Immed Rel 5 MG TABLET PO PRN (13:36)
[2021-04-09] MEDS ORDERED: *HR* HYDROcodone/Acet 5/325 mg TABLET PO ONE (13:41)
[2021-04-09] MEDS: 0.9 % Sodium Chloride 500 ML IVC SCH ×2 (13:44→17:12)
[2021-04-09] MEDS ORDERED: Famotidine 20 MG/2 ML VIAL IVP ONE (13:45)
[2021-04-09] MEDS ORDERED: *HR* Succinylcholine 200 MG/10 ML VIAL IVP ONE (14:11)
[2021-04-09] MEDS ORDERED: *HR* Rocuronium Bromide 50 MG/5 ML VIAL ONE (14:11)
[2021-04-09] MEDS ORDERED: Ondansetron 4 MG/2 ML VIAL ONE (14:11)
[2021-04-09] MEDS ORDERED: EPHEDrine 50 MG/ML VIAL ONE (14:37)
[2021-04-09] MEDS ORDERED: Sugammadex Sodium 200 MG/2 ML VIAL IV ONE (14:43)
[2021-04-09] MEDS ORDERED: *HR* Labetalol 20 MG/4 ML SYRINGE IVP ONE (16:52)
[2021-04-09] MEDS: *HR* Labetalol 20 MG/4 ML SYRINGE IVP PRN ×2 (17:10→17:22)
[2021-04-09] MEDS ORDERED: lisinopriL 20 MG TABLET PO STA (17:37)
[2021-04-09] MEDS ORDERED: levETIRAcetam 250 MG TABLET PO STA (17:37)
[2021-04-09] MEDS ORDERED: Isosorbide MONOnitrate (24 HR) 30 MG TAB.ER.24H PO STA (17:37)
[2021-04-09] MEDS ORDERED: NIFEdipine XL (24 HR) 60 MG TAB.ER.24 PO STA (17:37)
[2021-04-09] MEDS ORDERED: Divalproex (24 HR) 500 MG TABLET PO STA (17:37)
[2021-04-09] MEDS ORDERED: Acetaminophen 325 MG TABLET PO PRN (21:37)
[2021-04-09] MEDS ORDERED: *HR* HYDROmorphone (PF) 1 MG/ML SYRINGE IVP ONE (22:43)
[2021-04-09] MEDS: niCARdipine 20 MG/200 ML MLS IVC SCH (23:57)
[2021-04-10 00:36] LABS: Basophils # 0.1 K/mcL (0.0-0.2); Basophils % 0.6 %; Eosinophils % 0.1 %; Hematocrit 30.2 % (37.5-50.1); Hemoglobin 10.3 g/dL (12.9-16.9); Immature Granulocytes % 0.4 % (0-4); Lymphocytes # 0.6 K/mcL (0.6-4.6); Lymphocytes % 7.6 %; Mean Corpuscular HGB Conc 34.1 g/dL (31.6-35.5); Mean Corpuscular Volume 111.4 fL (83.0-100.0); Monocytes # 0.8 K/mcL (0.0-1.3); Monocytes % 9.3 %; Neutrophils # 6.9 K/mcL (1.6-8.9); Platelet Count 153 K/mcL (140-400); Red Blood Count 2.71 M/mcL (4.19-5.50); Red Cell Distribution Width 17.3 % (11.5-14.5); White Blood Count 8.4 K/mcL (4.3-11.1)
[2021-04-10 00:43] LABS: INR 1.1; Prothrombin Time 12.8 Seconds (9.4-12.1)
[2021-04-10 00:49] LABS: Albumin 3.5 g/dL (3.5-5.7); Albumin/Globulin Ratio 1.8 (1.1-2.2); Bilirubin,Total 0.5 mg/dL (0.3-1.0); Calcium 8.4 mg/dL (8.6-10.3); Magnesium 1.9 mg/dL (1.6-2.6); Potassium 3.8 mEq/L (3.5-5.1); Total Protein 5.5 g/dL (6.4-8.9)
[2021-04-10 00:59] LABS: Anisocytosis 1+ (Not Present); Macrocytosis Present (Not Present); Platelet Estimate Normal (Normal)
[2021-04-10] MEDS ORDERED: *HR* OxyCODONE Immed Rel 5 MG TABLET PO PRN (01:52)
[2021-04-10] MEDS: Furosemide 20 MG TABLET PO SCH (04:21)
[2021-04-10] MEDS: niCARdipine 20 MG/200 ML MLS IVC SCH ×4 (04:37→19:49)
[2021-04-10] MEDS ORDERED: Ondansetron 4 MG/2 ML VIAL IVP PRN (07:32)
[2021-04-10] MEDS ORDERED: *HR* HYDROcodone/Acet 5/325 mg TABLET PO ONE (07:36)
[2021-04-10] MEDS: Aspirin Enteric Coated 81 MG Tablet PO SCH (07:58)
[2021-04-10] MEDS: Divalproex (24 HR) 500 MG TABLET PO SCH ×2 (07:58→19:49)
[2021-04-10] MEDS: Isosorbide MONOnitrate (24 HR) 30 MG TAB.ER.24H PO SCH (07:58)
[2021-04-10] MEDS: lisinopriL 20 MG TABLET PO SCH ×2 (07:58→19:49)
[2021-04-10] MEDS: levETIRAcetam 250 MG TABLET PO SCH ×2 (07:58→19:48)
[2021-04-10] MEDS: Loratadine 10 MG TABLET PO SCH (07:59)
[2021-04-10] MEDS: NIFEdipine XL (24 HR) 60 MG TAB.ER.24 PO SCH (07:59)
[2021-04-10] MEDS: carvediloL 25 MG TABLET PO SCH ×2 (08:00→17:35)
[2021-04-10] MEDS: hydrALAZINE 25 MG TABLET PO SCH ×3 (08:00→17:35)
[2021-04-10 11:48] LABS: Hepatitis B Surface Antibody < 3.10 mIU/mL
[2021-04-10 11:59] LABS: Hepatitis B Surface Antigen Nonreactive (Nonreactive)
[2021-04-10] MEDS: *HR* OxyCODONE Immed Rel 5 MG TABLET PO PRN ×2 (12:25→19:49)
[2021-04-11] MEDS: niCARdipine 20 MG/200 ML MLS IVC SCH ×5 (02:07→15:45)
[2021-04-11 05:01] LABS: Hematocrit 18.7 % (37.5-50.1); Hemoglobin 6.4 g/dL (12.9-16.9); Mean Corpuscular HGB Conc 34.2 g/dL (31.6-35.5); Mean Corpuscular Hemoglobin 37.6 pg (28.0-33.3); Mean Platelet Volume 10.6 fL (9.4-12.4); Platelet Count 116 K/mcL (140-400); Red Cell Distribution Width 16.8 % (11.5-14.5); White Blood Count 6.9 K/mcL (4.3-11.1)
[2021-04-11 05:20] LABS: Calcium 8.9 mg/dL (8.6-10.3); Potassium 4.3 mEq/L (3.5-5.1)
[2021-04-11] MEDS: *HR* OxyCODONE Immed Rel 5 MG TABLET PO PRN ×4 (05:43→22:09)
[2021-04-11] MEDS: 0.9 % Sodium Chloride 500 ML IVC SCH (05:44)
[2021-04-11] MEDS ORDERED: *HR* Heparin 10,000 UNIT/10 ML VIAL IV PRN (07:20)
[2021-04-11] MEDS ORDERED: 0.9 % Sodium Chloride 250 ML IVC PRN (07:20)
[2021-04-11] MEDS ORDERED: 0.9 % Sodium Chloride 1,000 ML PRIME SCH (07:30)
[2021-04-11] MEDS: Aspirin Enteric Coated 81 MG Tablet PO SCH (07:40)
[2021-04-11] MEDS: Divalproex (24 HR) 500 MG TABLET PO SCH ×2 (07:40→22:03)
[2021-04-11] MEDS: levETIRAcetam 250 MG TABLET PO SCH ×2 (07:40→22:02)
[2021-04-11] MEDS: Loratadine 10 MG TABLET PO SCH (07:41)
[2021-04-11 10:35] LABS: Basophils % 0.5 %; Eosinophils % 0.5 %; Hematocrit 20.2 % (37.5-50.1); Hemoglobin 6.8 g/dL (12.9-16.9); Immature Granulocytes % 0.4 % (0-4); Lymphocytes # 0.4 K/mcL (0.6-4.6); Lymphocytes % 5.1 %; Mean Corpuscular HGB Conc 33.7 g/dL (31.6-35.5); Mean Corpuscular Hemoglobin 37.4 pg (28.0-33.3); Mean Platelet Volume 10.3 fL (9.4-12.4); Monocytes # 0.9 K/mcL (0.0-1.3); Monocytes % 11.9 %; Neutrophils # 6.3 K/mcL (1.6-8.9); Platelet Count 118 K/mcL (140-400); Red Blood Count 1.82 M/mcL (4.19-5.50); Red Cell Distribution Width 16.6 % (11.5-14.5); Segmented Neutrophils % 81.6 %; White Blood Count 7.7 K/mcL (4.3-11.1)
[2021-04-11] MEDS ORDERED: Isovue-370 500 ML BOTTLE IVP ONE (10:44)
[2021-04-11 11:32] LABS: Anisocytosis 1+ (Not Present); Hypochromasia Present (Not Present); Macrocytosis Present (Not Present); Platelet Estimate Decreased (Normal)
[2021-04-11] MEDS ORDERED: 0.9 % Sodium Chloride 250 ML ONE (12:25)
[2021-04-11] MEDS: hydrALAZINE 25 MG TABLET PO SCH ×3 (12:31→17:55)
[2021-04-11] MEDS: lisinopriL 20 MG TABLET PO SCH ×2 (12:31→22:03)
[2021-04-11] MEDS: Isosorbide MONOnitrate (24 HR) 30 MG TAB.ER.24H PO SCH (12:31)
[2021-04-11] MEDS: NIFEdipine XL (24 HR) 60 MG TAB.ER.24 PO SCH (12:32)
[2021-04-11] MEDS: carvediloL 25 MG TABLET PO SCH ×2 (12:33→17:55)
[2021-04-11 17:53] LABS: Hematocrit 26.7 % (37.5-50.1); Hemoglobin 9.2 g/dL (12.9-16.9)
[2021-04-11 17:56] LABS: Prothrombin Time 12.1 Seconds (9.4-12.1)
[2021-04-12 01:51] LABS: Hematocrit 24.5 % (37.5-50.1); Hemoglobin 8.5 g/dL (12.9-16.9); Mean Corpuscular HGB Conc 34.7 g/dL (31.6-35.5); Mean Corpuscular Hemoglobin 35.6 pg (28.0-33.3); Mean Corpuscular Volume 102.5 fL (83.0-100.0); Mean Platelet Volume 11.1 fL (9.4-12.4); Platelet Count 122 K/mcL (140-400); Red Blood Count 2.39 M/mcL (4.19-5.50); Red Cell Distribution Width 21.7 % (11.5-14.5); White Blood Count 7.3 K/mcL (4.3-11.1)
[2021-04-12 02:05] LABS: Calcium 8.8 mg/dL (8.6-10.3); Potassium 4.2 mEq/L (3.5-5.1)
[2021-04-12] MEDS: Furosemide 20 MG TABLET PO SCH (03:03)
[2021-04-12] MEDS: hydrALAZINE 25 MG TABLET PO SCH ×3 (07:38→17:09)
[2021-04-12] MEDS: NIFEdipine XL (24 HR) 60 MG TAB.ER.24 PO SCH (07:39)
[2021-04-12] MEDS: Aspirin Enteric Coated 81 MG Tablet PO SCH (07:39)
[2021-04-12] MEDS: carvediloL 25 MG TABLET PO SCH ×2 (07:39→17:08)
[2021-04-12] MEDS: Divalproex (24 HR) 500 MG TABLET PO SCH ×2 (07:40→22:00)
[2021-04-12] MEDS: Loratadine 10 MG TABLET PO SCH (07:40)
[2021-04-12] MEDS: Isosorbide MONOnitrate (24 HR) 30 MG TAB.ER.24H PO SCH (07:41)
[2021-04-12] MEDS: lisinopriL 20 MG TABLET PO SCH ×2 (07:41→22:00)
[2021-04-12] MEDS: *HR* OxyCODONE Immed Rel 5 MG TABLET PO PRN (07:41)
[2021-04-12] MEDS: levETIRAcetam 250 MG TABLET PO SCH ×2 (07:41→22:00)
[2021-04-12] MEDS ORDERED: *HR* OxyCODONE Immed Rel 5 MG TABLET PO PRN (08:26)
[2021-04-12] MEDS ORDERED: Sennosides/Docusate Sodium TABLET PO PRN (10:43)
[2021-04-12] MEDS: niCARdipine 20 MG/200 ML MLS IVC SCH ×4 (15:11→15:35)
[2021-04-12 18:19] LABS: Hematocrit 24.5 % (37.5-50.1); Hemoglobin 8.3 g/dL (12.9-16.9)
[2021-04-13] MEDS: *HR* Labetalol 20 MG/4 ML SYRINGE IVP PRN (01:09)
[2021-04-13 02:47] LABS: Hematocrit 24.9 % (37.5-50.1); Hemoglobin 8.6 g/dL (12.9-16.9); Mean Corpuscular HGB Conc 34.5 g/dL (31.6-35.5); Mean Corpuscular Volume 104.2 fL (83.0-100.0); Mean Platelet Volume 11.5 fL (9.4-12.4); Platelet Count 128 K/mcL (140-400); Red Blood Count 2.39 M/mcL (4.19-5.50); Red Cell Distribution Width 20.7 % (11.5-14.5); White Blood Count 7.5 K/mcL (4.3-11.1)
[2021-04-13 02:56] LABS: Calcium 8.8 mg/dL (8.6-10.3); Potassium 4.8 mEq/L (3.5-5.1)
[2021-04-13 06:25] VITALS: PULSE 83; O2SAT 97
[2021-04-13] MEDS: hydrALAZINE 25 MG TABLET PO SCH ×2 (06:35→11:38)
[2021-04-13] MEDS: carvediloL 25 MG TABLET PO SCH (06:35)
[2021-04-13] MEDS: NIFEdipine XL (24 HR) 60 MG TAB.ER.24 PO SCH (06:35)
[2021-04-13] MEDS ORDERED: 0.9 % Sodium Chloride 250 ML IVC PRN (07:30)
[2021-04-13] MEDS ORDERED: 0.9 % Sodium Chloride 1,000 ML PRIME SCH (07:30)
[2021-04-13] MEDS ORDERED: *HR* Heparin 10,000 UNIT/10 ML VIAL IV PRN (07:30)
[2021-04-13] MEDS: lisinopriL 20 MG TABLET PO SCH (09:30)
[2021-04-13] MEDS: Isosorbide MONOnitrate (24 HR) 30 MG TAB.ER.24H PO SCH (09:31)
[2021-04-13] MEDS: Aspirin Enteric Coated 81 MG Tablet PO SCH (09:32)
[2021-04-13] MEDS: levETIRAcetam 250 MG TABLET PO SCH (09:32)
[2021-04-13] MEDS: Divalproex (24 HR) 500 MG TABLET PO SCH (09:32)
[2021-04-13] MEDS: Loratadine 10 MG TABLET PO SCH (09:32)
[2021-04-13 11:50] VITALS: BP 168/106; TEMP 97.7
== END 2021-04-13 16:34 | disposition home or self-care (01) | DRG 951 ==
LOC: SAMDAY 12:11 → 2NNU 12:11 → SUATTDRO 21:44 → 2ANU 04-12 16:10
PROVIDERS: ADMIT Student in an Organized Health Care Education/Training Program; ATTEND Internal Medicine

== ENCOUNTER 2021-06-22 20:16 | Inpatient (IN) ==
[2021-06-22] MEDS ORDERED: 0.9 % Sodium Chloride 500 ML IVC ONE (21:24)
[2021-06-22] MEDS ORDERED: Isovue-370 500 ML BOTTLE IVP ONE (21:49)
[2021-06-22] MEDS ORDERED: Cefepime HCl 1,000 MG in Water for inj. (sterile) 10 ML IVP STA (22:14)
[2021-06-22 22:51] LABS: Basophils % 0.1 %; Eosinophils % 0.1 %; Hematocrit 19.4 % (37.5-50.1); Hemoglobin 6.4 g/dL (12.9-16.9); Immature Granulocytes % 0.5 % (0-4); Lymphocytes # 0.3 K/mcL (0.6-4.6); Lymphocytes % 1.9 %; Mean Corpuscular Hemoglobin 34.4 pg (28.0-33.3); Mean Corpuscular Volume 104.3 fL (83.0-100.0); Mean Platelet Volume 10.4 fL (9.4-12.4); Monocytes # 0.7 K/mcL (0.0-1.3); Monocytes % 5.2 %; Platelet Count 190 K/mcL (140-400); Red Blood Count 1.86 M/mcL (4.19-5.50); Red Cell Distribution Width 15.6 % (11.5-14.5); Segmented Neutrophils % 92.2 %; White Blood Count 14.2 K/mcL (4.3-11.1)
[2021-06-22 22:52] LABS: VBG HCO3 17 mEq/L (21-27); VBG PCO2 34 mmHg (41-51); VBG PO2 69 mmHg (25-50)
[2021-06-22 23:00] LABS: Influenza A PCR Negative (Negative); Influenza B PCR Negative (Negative); Resp. Syncytial Virus PCR Positive (Negative)
[2021-06-22 23:01] LABS: SARS-CoV-2 by PCR (In House) Negative (Negative)
[2021-06-22 23:15] LABS: Albumin 2.1 g/dL (3.5-5.7); Albumin/Globulin Ratio 0.9 (1.1-2.2); Bilirubin,Direct 0.1 mg/dL (0.0-0.2); Bilirubin,Indirect 0.3 mg/dL (0.0-1.0); Bilirubin,Total 0.4 mg/dL (0.3-1.0); Calcium 8.3 mg/dL (8.6-10.3); Globulin 2.3 g/dL (2.4-3.5); Magnesium 2.1 mg/dL (1.6-2.6); Potassium 5.1 mEq/L (3.5-5.1); Total Protein 4.4 g/dL (6.4-8.9)
[2021-06-22 23:26] LABS: Troponin I 0.05 ng/mL (< 0.04)
[2021-06-23] MEDS ORDERED: *HR* Dextrose 50 % in Water (Vial) 50 ML VIAL IVP ONE (03:04)
[2021-06-23] MEDS ORDERED: *HR* Dextrose 50 % in Water (Syg) 50 ML SYRINGE ONE (03:08)
[2021-06-23] MEDS ORDERED: Naloxone 0.4 MG/ML INJ IVP PRN (03:10)
[2021-06-23] MEDS ORDERED: Melatonin 3 MG TABLET PO PRN (03:10)
[2021-06-23] MEDS ORDERED: Ondansetron 4 MG/2 ML VIAL IVP PRN (03:10)
[2021-06-23] MEDS ORDERED: D5% in Water 1,000 ML IVC PRN (03:14)
[2021-06-23] MEDS ORDERED: Dextrose Gel 15 GM/37.5 ML TUBE PO PRN ×2 (03:14)
[2021-06-23] MEDS ORDERED: Vancomycin 1 EACH in 0.9 % Sodium Chloride 250 ML IVPB PRN (05:00)
[2021-06-23 06:29] LABS: Basophils % 0.2 %; Eosinophils % 0.1 %; Hematocrit 22.1 % (37.5-50.1); Hemoglobin 7.4 g/dL (12.9-16.9); Immature Granulocytes % 0.5 % (0-4); Lymphocytes # 0.3 K/mcL (0.6-4.6); Lymphocytes % 2.3 %; Mean Corpuscular HGB Conc 33.5 g/dL (31.6-35.5); Mean Corpuscular Hemoglobin 33.6 pg (28.0-33.3); Mean Corpuscular Volume 100.5 fL (83.0-100.0); Mean Platelet Volume 10.3 fL (9.4-12.4); Monocytes # 0.9 K/mcL (0.0-1.3); Monocytes % 6.6 %; Neutrophils # 12.2 K/mcL (1.6-8.9); Platelet Count 168 K/mcL (140-400); Red Cell Distribution Width 17.4 % (11.5-14.5); Segmented Neutrophils % 90.3 %; White Blood Count 13.6 K/mcL (4.3-11.1)
[2021-06-23] MEDS: *HR* Dextrose 50 % in Water (Syg) 50 ML SYRINGE IVP PRN ×3 (06:47→19:58)
[2021-06-23 06:54] LABS: Calcium 7.9 mg/dL (8.6-10.3); Phosphorous 7.4 mg/dL (2.7-4.5); Troponin I 0.05 ng/mL (< 0.04)
[2021-06-23] MEDS ORDERED: *HR* Heparin 10,000 UNIT/10 ML VIAL IV PRN (08:47)
[2021-06-23] MEDS ORDERED: 0.9 % Sodium Chloride 250 ML IVC PRN (08:47)
[2021-06-23] MEDS ORDERED: 0.9 % Sodium Chloride 1,000 ML PRIME SCH (09:00)
[2021-06-23] MEDS: levETIRAcetam 250 MG TABLET PO SCH ×2 (12:03→22:00)
[2021-06-23] MEDS: Aspirin Enteric Coated 81 MG Tablet PO SCH (12:03)
[2021-06-23] MEDS: Divalproex (24 HR) 500 MG TABLET PO SCH ×2 (12:03→22:00)
[2021-06-23] MEDS: Darbepoetin 100 MCG/0.5 ML SYRINGE SQ SCH (13:03)
[2021-06-23] MEDS: Acetaminophen 325 MG TABLET PO PRN (15:55)
[2021-06-23] MEDS ORDERED: Cefepime HCl 2,000 MG in Water for inj. (sterile) 20 ML IVP SCH (22:00)
[2021-06-24 02:21] LABS: Hepatitis B Surface Antibody < 3.10 mIU/mL
[2021-06-24 02:29] LABS: Basophils % 0.2 %; Eosinophils # 0.1 K/mcL (0.0-0.6); Eosinophils % 0.5 %; Hematocrit 22.6 % (37.5-50.1); Hemoglobin 7.9 g/dL (12.9-16.9); Immature Granulocytes % 0.5 % (0-4); Lymphocytes # 0.4 K/mcL (0.6-4.6); Lymphocytes % 3.6 %; Mean Corpuscular Hemoglobin 33.5 pg (28.0-33.3); Mean Corpuscular Volume 95.8 fL (83.0-100.0); Mean Platelet Volume 10.6 fL (9.4-12.4); Monocytes % 9.2 %; Neutrophils # 9.7 K/mcL (1.6-8.9); Platelet Count 166 K/mcL (140-400); Red Blood Count 2.36 M/mcL (4.19-5.50); Red Cell Distribution Width 18.1 % (11.5-14.5); White Blood Count 11.3 K/mcL (4.3-11.1)
[2021-06-24 02:32] LABS: Hepatitis B Surface Antigen Nonreactive (Nonreactive)
[2021-06-24 02:43] LABS: Calcium 8.1 mg/dL (8.6-10.3); Potassium 4.4 mEq/L (3.5-5.1)
[2021-06-24] MEDS: NIFEdipine XL (24 HR) 30 MG TAB.ER.24 PO SCH (08:40)
[2021-06-24] MEDS: Divalproex (24 HR) 500 MG TABLET PO SCH ×2 (08:41→21:19)
[2021-06-24] MEDS: hydrALAZINE 25 MG TABLET PO SCH ×3 (08:41→16:52)
[2021-06-24] MEDS: levETIRAcetam 250 MG TABLET PO SCH ×2 (08:41→21:19)
[2021-06-24] MEDS: carvediloL 25 MG TABLET PO SCH ×2 (08:41→16:52)
[2021-06-24] MEDS: Loratadine 10 MG TABLET PO SCH (08:41)
[2021-06-24] MEDS: Aspirin Enteric Coated 81 MG Tablet PO SCH (08:41)
[2021-06-24] MEDS: Vitamin B Complex/Vit C/Vit E 1 EACH TABLET PO SCH (08:41)
[2021-06-24] MEDS: lisinopriL 20 MG TABLET PO SCH (08:41)
[2021-06-24] MEDS: Isosorbide MONOnitrate (24 HR) 30 MG TAB.ER.24H PO SCH (08:41)
[2021-06-24] MEDS: Furosemide 20 MG TABLET PO SCH (08:47)
[2021-06-24] MEDS: Mirtazapine 15 MG TABLET PO SCH (21:19)
[2021-06-25 04:49] LABS: Basophils % 0.5 %; Eosinophils # 0.2 K/mcL (0.0-0.6); Eosinophils % 3.2 %; Hematocrit 23.3 % (37.5-50.1); Hemoglobin 7.6 g/dL (12.9-16.9); Immature Granulocytes % 1.1 % (0-4); Lymphocytes # 0.5 K/mcL (0.6-4.6); Lymphocytes % 6.7 %; Mean Corpuscular HGB Conc 32.6 g/dL (31.6-35.5); Mean Corpuscular Hemoglobin 32.6 pg (28.0-33.3); Monocytes # 0.6 K/mcL (0.0-1.3); Monocytes % 7.9 %; Platelet Count 145 K/mcL (140-400); Red Blood Count 2.33 M/mcL (4.19-5.50); Red Cell Distribution Width 18.3 % (11.5-14.5); Segmented Neutrophils % 80.6 %; White Blood Count 7.5 K/mcL (4.3-11.1)
[2021-06-25 05:09] LABS: Calcium 7.9 mg/dL (8.6-10.3); Potassium 4.1 mEq/L (3.5-5.1)
[2021-06-25] MEDS: *HR* Dextrose 50 % in Water (Syg) 50 ML SYRINGE IVP PRN (07:52)
[2021-06-25] MEDS ORDERED: *HR* Heparin 10,000 UNIT/10 ML VIAL IV PRN (08:12)
[2021-06-25] MEDS ORDERED: 0.9 % Sodium Chloride 250 ML IVC PRN (08:12)
[2021-06-25] MEDS: Loratadine 10 MG TABLET PO SCH (08:44)
[2021-06-25] MEDS: Aspirin Enteric Coated 81 MG Tablet PO SCH (08:44)
[2021-06-25] MEDS: Vitamin B Complex/Vit C/Vit E 1 EACH TABLET PO SCH (08:44)
[2021-06-25] MEDS: levETIRAcetam 250 MG TABLET PO SCH ×2 (08:44→21:03)
[2021-06-25] MEDS: Divalproex (24 HR) 500 MG TABLET PO SCH ×2 (08:44→21:03)
[2021-06-25] MEDS: hydrALAZINE 25 MG TABLET PO SCH ×2 (15:10→16:43)
[2021-06-25] MEDS: carvediloL 25 MG TABLET PO SCH ×2 (15:10→16:44)
[2021-06-25] MEDS ORDERED: Vancomycin 500 MG in 0.9 % Sodium Chloride Mini Bag 100 ML IVPB ONE (16:00)
[2021-06-25] MEDS: lisinopriL 20 MG TABLET PO SCH (16:43)
[2021-06-25] MEDS: NIFEdipine XL (24 HR) 30 MG TAB.ER.24 PO SCH (16:43)
[2021-06-25] MEDS: Isosorbide MONOnitrate (24 HR) 30 MG TAB.ER.24H PO SCH (16:44)
[2021-06-25] MEDS: Mirtazapine 15 MG TABLET PO SCH (21:03)
[2021-06-25] MEDS ORDERED: Cefepime HCl 2,000 MG in Water for inj. (sterile) 20 ML IVP SCH (22:00)
[2021-06-26 01:04] LABS: Basophils % 0.3 %; Eosinophils # 0.2 K/mcL (0.0-0.6); Eosinophils % 3.2 %; Hematocrit 23.3 % (37.5-50.1); Hemoglobin 7.9 g/dL (12.9-16.9); Immature Granulocytes % 1.1 % (0-4); Lymphocytes # 0.4 K/mcL (0.6-4.6); Mean Corpuscular HGB Conc 33.9 g/dL (31.6-35.5); Mean Corpuscular Hemoglobin 33.8 pg (28.0-33.3); Mean Corpuscular Volume 99.6 fL (83.0-100.0); Monocytes # 0.6 K/mcL (0.0-1.3); Monocytes % 8.9 %; Platelet Count 127 K/mcL (140-400); Red Blood Count 2.34 M/mcL (4.19-5.50); Segmented Neutrophils % 79.5 %; White Blood Count 6.3 K/mcL (4.3-11.1)
[2021-06-26 02:00] LABS: Calcium 7.9 mg/dL (8.6-10.3); Potassium 3.6 mEq/L (3.5-5.1)
[2021-06-26] MEDS: Divalproex (24 HR) 500 MG TABLET PO SCH ×2 (07:21→19:50)
[2021-06-26] MEDS: lisinopriL 20 MG TABLET PO SCH (07:22)
[2021-06-26] MEDS: Vitamin B Complex/Vit C/Vit E 1 EACH TABLET PO SCH (07:22)
[2021-06-26] MEDS: NIFEdipine XL (24 HR) 30 MG TAB.ER.24 PO SCH (07:22)
[2021-06-26] MEDS: levETIRAcetam 250 MG TABLET PO SCH ×2 (07:22→19:55)
[2021-06-26] MEDS: hydrALAZINE 25 MG TABLET PO SCH ×3 (07:22→16:33)
[2021-06-26] MEDS: carvediloL 25 MG TABLET PO SCH ×2 (07:22→16:33)
[2021-06-26] MEDS: Loratadine 10 MG TABLET PO SCH (07:23)
[2021-06-26] MEDS: Isosorbide MONOnitrate (24 HR) 30 MG TAB.ER.24H PO SCH (07:23)
[2021-06-26] MEDS: Aspirin Enteric Coated 81 MG Tablet PO SCH (07:23)
[2021-06-26] MEDS: Furosemide 20 MG TABLET PO SCH (07:45)
[2021-06-26] MEDS: Doxycycline 100 MG CAPSULE PO SCH (19:50)
[2021-06-26] MEDS: Mirtazapine 15 MG TABLET PO SCH (19:54)
[2021-06-26] MEDS: Cefdinir 300 MG CAPSULE PO SCH (22:33)
[2021-06-27 06:32] LABS: Calcium 7.6 mg/dL (8.6-10.3); Potassium 4.2 mEq/L (3.5-5.1)
[2021-06-27 06:40] LABS: Basophils % 0.5 %; Eosinophils # 0.4 K/mcL (0.0-0.6); Eosinophils % 7.4 %; Hematocrit 19.4 % (37.5-50.1); Hemoglobin 6.8 g/dL (12.9-16.9); Immature Granulocytes % 1.7 % (0-4); Lymphocytes # 0.7 K/mcL (0.6-4.6); Lymphocytes % 12.2 %; Mean Corpuscular HGB Conc 35.1 g/dL (31.6-35.5); Mean Corpuscular Hemoglobin 34.7 pg (28.0-33.3); Mean Platelet Volume 10.7 fL (9.4-12.4); Monocytes # 0.5 K/mcL (0.0-1.3); Monocytes % 8.8 %; Neutrophils # 4.1 K/mcL (1.6-8.9); Red Blood Count 1.96 M/mcL (4.19-5.50); Red Cell Distribution Width 17.2 % (11.5-14.5); Segmented Neutrophils % 69.4 %; White Blood Count 5.9 K/mcL (4.3-11.1)
[2021-06-27 06:41] LABS: Platelet Count 93 K/mcL (140-400)
[2021-06-27] MEDS ORDERED: 0.9 % Sodium Chloride 250 ML IVC PRN (08:26)
[2021-06-27] MEDS ORDERED: *HR* Heparin 10,000 UNIT/10 ML VIAL IV PRN (08:26)
[2021-06-27] MEDS: Aspirin Enteric Coated 81 MG Tablet PO SCH (08:55)
[2021-06-27] MEDS: Loratadine 10 MG TABLET PO SCH (08:56)
[2021-06-27] MEDS: Divalproex (24 HR) 500 MG TABLET PO SCH ×2 (08:56→19:32)
[2021-06-27] MEDS: Doxycycline 100 MG CAPSULE PO SCH ×2 (08:56→19:32)
[2021-06-27] MEDS: Isosorbide MONOnitrate (24 HR) 30 MG TAB.ER.24H PO SCH (08:56)
[2021-06-27] MEDS: hydrALAZINE 25 MG TABLET PO SCH ×3 (08:56→16:35)
[2021-06-27] MEDS: carvediloL 25 MG TABLET PO SCH ×2 (08:56→16:35)
[2021-06-27] MEDS: NIFEdipine XL (24 HR) 30 MG TAB.ER.24 PO SCH (08:57)
[2021-06-27] MEDS: lisinopriL 20 MG TABLET PO SCH (08:57)
[2021-06-27] MEDS: Vitamin B Complex/Vit C/Vit E 1 EACH TABLET PO SCH (09:04)
[2021-06-27] MEDS: levETIRAcetam 250 MG TABLET PO SCH ×2 (09:04→19:32)
[2021-06-27] MEDS: Acetaminophen 325 MG TABLET PO PRN (16:36)
[2021-06-27] MEDS: Cefdinir 300 MG CAPSULE PO SCH (19:32)
[2021-06-27] MEDS: Mirtazapine 15 MG TABLET PO SCH (19:32)
[2021-06-28 06:09] LABS: Basophils % 0.4 %; Eosinophils # 0.4 K/mcL (0.0-0.6); Eosinophils % 6.2 %; Hematocrit 20.4 % (37.5-50.1); Hemoglobin 6.7 g/dL (12.9-16.9); Immature Granulocytes % 1.3 % (0-4); Immature Platelets 2.2 % (1.1-6.1); Lymphocytes # 0.6 K/mcL (0.6-4.6); Lymphocytes % 8.9 %; Mean Corpuscular HGB Conc 32.8 g/dL (31.6-35.5); Mean Corpuscular Hemoglobin 33.3 pg (28.0-33.3); Mean Corpuscular Volume 101.5 fL (83.0-100.0); Monocytes # 0.5 K/mcL (0.0-1.3); Neutrophils # 5.1 K/mcL (1.6-8.9); Red Blood Count 2.01 M/mcL (4.19-5.50); Segmented Neutrophils % 76.2 %; White Blood Count 6.7 K/mcL (4.3-11.1)
[2021-06-28 06:21] LABS: Calcium 7.7 mg/dL (8.6-10.3); Potassium 4.2 mEq/L (3.5-5.1)
[2021-06-28 06:22] LABS: Platelet Count 96 K/mcL (140-400)
[2021-06-28 06:23] LABS: Anisocytosis 1+ (Not Present); Macrocytosis Present (Not Present); Platelet Estimate Slight Decrease (Normal)
[2021-06-28] MEDS: NIFEdipine XL (24 HR) 30 MG TAB.ER.24 PO SCH (08:10)
[2021-06-28] MEDS: Vitamin B Complex/Vit C/Vit E 1 EACH TABLET PO SCH (08:11)
[2021-06-28] MEDS: carvediloL 25 MG TABLET PO SCH ×2 (08:11→16:26)
[2021-06-28] MEDS: hydrALAZINE 25 MG TABLET PO SCH ×3 (08:12→16:26)
[2021-06-28] MEDS: Isosorbide MONOnitrate (24 HR) 30 MG TAB.ER.24H PO SCH (08:12)
[2021-06-28] MEDS: levETIRAcetam 250 MG TABLET PO SCH ×2 (08:12→22:15)
[2021-06-28] MEDS: Loratadine 10 MG TABLET PO SCH (08:13)
[2021-06-28] MEDS: Divalproex (24 HR) 500 MG TABLET PO SCH ×2 (08:13→22:14)
[2021-06-28] MEDS: Doxycycline 100 MG CAPSULE PO SCH ×2 (08:13→22:14)
[2021-06-28] MEDS: Aspirin Enteric Coated 81 MG Tablet PO SCH (08:14)
[2021-06-28] MEDS: lisinopriL 20 MG TABLET PO SCH (08:14)
[2021-06-28] MEDS: Furosemide 20 MG TABLET PO SCH (11:02)
[2021-06-28] MEDS: Acetaminophen 325 MG TABLET PO PRN (16:34)
[2021-06-28] MEDS: Mirtazapine 15 MG TABLET PO SCH (22:15)
[2021-06-29 00:50] LABS: Basophils % 0.3 %; Eosinophils # 0.5 K/mcL (0.0-0.6); Eosinophils % 5.8 %; Hematocrit 23.5 % (37.5-50.1); Immature Granulocytes % 1.1 % (0-4); Immature Platelets 2.1 % (1.1-6.1); Lymphocytes # 0.6 K/mcL (0.6-4.6); Lymphocytes % 6.9 %; Mean Corpuscular Hemoglobin 32.9 pg (28.0-33.3); Mean Corpuscular Volume 96.7 fL (83.0-100.0); Mean Platelet Volume 10.5 fL (9.4-12.4); Monocytes # 0.6 K/mcL (0.0-1.3); Neutrophils # 6.9 K/mcL (1.6-8.9); Platelet Count 85 K/mcL (140-400); Red Blood Count 2.43 M/mcL (4.19-5.50); Red Cell Distribution Width 17.4 % (11.5-14.5); Segmented Neutrophils % 78.9 %; White Blood Count 8.7 K/mcL (4.3-11.1)
[2021-06-29 01:00] LABS: Calcium 7.4 mg/dL (8.6-10.3); Potassium 4.3 mEq/L (3.5-5.1)
[2021-06-29] MEDS ORDERED: *HR* Heparin 10,000 UNIT/10 ML VIAL IV PRN (08:01)
[2021-06-29] MEDS ORDERED: 0.9 % Sodium Chloride 250 ML IVC PRN (08:01)
[2021-06-29] MEDS: lisinopriL 20 MG TABLET PO SCH (08:25)
[2021-06-29] MEDS: Divalproex (24 HR) 500 MG TABLET PO SCH ×2 (08:25→21:01)
[2021-06-29] MEDS: Aspirin Enteric Coated 81 MG Tablet PO SCH (08:25)
[2021-06-29] MEDS: Doxycycline 100 MG CAPSULE PO SCH ×2 (08:25→21:02)
[2021-06-29] MEDS: hydrALAZINE 25 MG TABLET PO SCH ×3 (08:25→18:35)
[2021-06-29] MEDS: Isosorbide MONOnitrate (24 HR) 30 MG TAB.ER.24H PO SCH (08:26)
[2021-06-29] MEDS: Loratadine 10 MG TABLET PO SCH (08:26)
[2021-06-29] MEDS: carvediloL 25 MG TABLET PO SCH ×2 (08:26→18:35)
[2021-06-29] MEDS: levETIRAcetam 250 MG TABLET PO SCH ×2 (09:16→21:01)
[2021-06-29] MEDS: Vitamin B Complex/Vit C/Vit E 1 EACH TABLET PO SCH (09:16)
[2021-06-29] MEDS: NIFEdipine XL (24 HR) 30 MG TAB.ER.24 PO SCH (09:16)
[2021-06-29] MEDS ORDERED: polyethylene glycoL 3350 17 GM POWD.PACK PO PRN (13:42)
[2021-06-29] MEDS: Mirtazapine 15 MG TABLET PO SCH (21:01)
[2021-06-29] MEDS: Cefdinir 300 MG CAPSULE PO SCH (21:01)
[2021-06-30] MEDS ORDERED: *HR* FentaNYL (PF) 100 MCG/2 ML VIAL IVP PRN (07:01)
[2021-06-30] MEDS ORDERED: *HR* HYDROmorphone PF 0.5 MG/0.5 ML SYRINGE IVP PRN ×2 (07:01→13:56)
[2021-06-30] MEDS ORDERED: *HR* OxyCODONE Immed Rel 5 MG TABLET PO PRN (07:01)
[2021-06-30] MEDS ORDERED: *HR* Succinylcholine 200 MG/10 ML VIAL IVP ONE (07:46)
[2021-06-30] MEDS ORDERED: Lidocaine -MPF 2% 5 ML VIAL ONE (07:46)
[2021-06-30] MEDS ORDERED: *HR* Midazolam HCl 2 MG/2 ML VIAL ONE (07:46)
[2021-06-30] MEDS ORDERED: Ondansetron 4 MG/2 ML VIAL ONE (07:46)
[2021-06-30] MEDS ORDERED: Lidocaine HCL 4 ML Topical Solution (Laryng-O-Jet Kit Sterile Pak) TP ONE (07:46)
[2021-06-30] MEDS ORDERED: *HR* Rocuronium Bromide 50 MG/5 ML VIAL ONE (07:46)
[2021-06-30] MEDS ORDERED: *HR* FentaNYL (PF) 100 MCG/2 ML VIAL ONE (07:46)
[2021-06-30] MEDS ORDERED: *HR* Propofol 200 MG/20 ML VIAL IVP ONE (07:46)
[2021-06-30 11:04] LABS: Basophils % 0.2 %; Hematocrit 25.8 % (37.5-50.1); Red Cell Distribution Width 17.2 % (11.5-14.5)
[2021-06-30 11:05] LABS: Eosinophils # 0.2 K/mcL (0.0-0.6); Eosinophils % 1.6 %; Hemoglobin 8.5 g/dL (12.9-16.9); Immature Granulocytes % 0.6 % (0-4); Immature Platelets 2.3 % (1.1-6.1); Lymphocytes # 0.4 K/mcL (0.6-4.6); Lymphocytes % 3.9 %; Mean Corpuscular HGB Conc 32.9 g/dL (31.6-35.5); Mean Corpuscular Hemoglobin 33.2 pg (28.0-33.3); Mean Corpuscular Volume 100.8 fL (83.0-100.0); Mean Platelet Volume 9.9 fL (9.4-12.4); Monocytes # 0.4 K/mcL (0.0-1.3); Monocytes % 4.2 %; Neutrophils # 9.4 K/mcL (1.6-8.9); Red Blood Count 2.56 M/mcL (4.19-5.50); Segmented Neutrophils % 89.5 %; White Blood Count 10.5 K/mcL (4.3-11.1)
[2021-06-30 11:09] LABS: Platelet Count 98 K/mcL (140-400)
[2021-06-30] MEDS: hydrALAZINE 25 MG TABLET PO SCH ×3 (11:22→15:13)
[2021-06-30 11:23] LABS: Calcium 7.9 mg/dL (8.6-10.3); Potassium 4.9 mEq/L (3.5-5.1)
[2021-06-30] MEDS: lisinopriL 20 MG TABLET PO SCH (11:23)
[2021-06-30] MEDS: Aspirin Enteric Coated 81 MG Tablet PO SCH (11:23)
[2021-06-30] MEDS: Doxycycline 100 MG CAPSULE PO SCH ×2 (11:23→19:43)
[2021-06-30] MEDS: Loratadine 10 MG TABLET PO SCH (11:23)
[2021-06-30] MEDS: Acetaminophen 325 MG TABLET PO PRN ×2 (11:23→19:42)
[2021-06-30] MEDS: Isosorbide MONOnitrate (24 HR) 30 MG TAB.ER.24H PO SCH (11:24)
[2021-06-30] MEDS: carvediloL 25 MG TABLET PO SCH ×2 (11:24→15:13)
[2021-06-30] MEDS: Divalproex (24 HR) 500 MG TABLET PO SCH ×2 (11:24→19:43)
[2021-06-30] MEDS: levETIRAcetam 250 MG TABLET PO SCH ×2 (11:32→19:43)
[2021-06-30] MEDS: Vitamin B Complex/Vit C/Vit E 1 EACH TABLET PO SCH (11:32)
[2021-06-30] MEDS: NIFEdipine XL (24 HR) 30 MG TAB.ER.24 PO SCH (11:32)
[2021-06-30] MEDS: Darbepoetin 100 MCG/0.5 ML SYRINGE SQ SCH (15:13)
[2021-06-30] MEDS ORDERED: *HR* HYDROmorphone (PF) 1 MG/ML SYRINGE IVP PRN (15:45)
[2021-06-30] MEDS: Mirtazapine 15 MG TABLET PO SCH (19:43)
[2021-06-30] MEDS ORDERED: Famotidine 20 MG/2 ML VIAL IVP ONE (23:32)
[2021-07-01] MEDS: hydrALAZINE 25 MG TABLET PO SCH ×2 (09:44→12:00)
[2021-07-01] MEDS: NIFEdipine XL (24 HR) 30 MG TAB.ER.24 PO SCH (09:44)
[2021-07-01] MEDS: Isosorbide MONOnitrate (24 HR) 30 MG TAB.ER.24H PO SCH (09:45)
[2021-07-01] MEDS: Loratadine 10 MG TABLET PO SCH (09:45)
[2021-07-01] MEDS: Divalproex (24 HR) 500 MG TABLET PO SCH (09:45)
[2021-07-01] MEDS: levETIRAcetam 250 MG TABLET PO SCH (09:45)
[2021-07-01] MEDS: carvediloL 25 MG TABLET PO SCH (09:45)
[2021-07-01] MEDS: lisinopriL 20 MG TABLET PO SCH (09:45)
[2021-07-01] MEDS: Aspirin Enteric Coated 81 MG Tablet PO SCH (09:45)
[2021-07-01] MEDS: Doxycycline 100 MG CAPSULE PO SCH (09:45)
[2021-07-01] MEDS: Vitamin B Complex/Vit C/Vit E 1 EACH TABLET PO SCH (09:45)
[2021-07-01 11:56] VITALS: BP 152/98; PULSE 74; TEMP 98.6; O2SAT 95
[2021-07-01] MEDS: Furosemide 20 MG TABLET PO SCH (11:59)
[2021-07-01] MEDS ORDERED: Cefdinir 300 MG CAPSULE PO SCH (21:00)
== END 2021-07-01 14:01 | disposition home health service (06) | DRG 951 ==
LOC: 3BNU 20:16 → EMEROOARM 20:16 → SUATTDRO 06-23 02:59 → 3BNU 06-23 03:44 → SUATTDRO 06-24 10:42
PROVIDERS: ADMIT Internal Medicine; ATTEND Internal Medicine

== ENCOUNTER 2022-05-05 11:37 | Inpatient (IN) ==
[2022-05-05] MEDS ORDERED: *HR* HYDROmorphone (PF) 1 MG/ML SYRINGE IVP ONE (12:30)
[2022-05-05 13:21] LABS: Basophils % 0.3 %; Eosinophils # 0.2 K/mcL (0.0-0.6); Eosinophils % 1.6 %; Hematocrit 27.2 % (37.5-50.1); Hemoglobin 9.6 g/dL (12.9-16.9); Immature Granulocytes % 0.3 % (0-4); Lymphocytes # 0.4 K/mcL (0.6-4.6); Lymphocytes % 4.4 %; Mean Corpuscular HGB Conc 35.3 g/dL (31.6-35.5); Mean Corpuscular Hemoglobin 37.4 pg (28.0-33.3); Mean Corpuscular Volume 105.8 fL (83.0-100.0); Monocytes % 10.6 %; Platelet Count 196 K/mcL (140-400); Red Blood Count 2.57 M/mcL (4.19-5.50); Red Cell Distribution Width 15.3 % (11.5-14.5); Segmented Neutrophils % 82.8 %; White Blood Count 9.6 K/mcL (4.3-11.1)
[2022-05-05] MEDS ORDERED: Acetaminophen 325 MG TABLET PO PRN (13:43)
[2022-05-05] MEDS ORDERED: Ondansetron 4 MG/2 ML VIAL IVP PRN (13:43)
[2022-05-05] MEDS ORDERED: Naloxone 0.4 MG/ML INJ IVP PRN (13:43)
[2022-05-05] MEDS ORDERED: *HR* HYDROcodone/Acet 5/325 mg TABLET PO PRN (13:43)
[2022-05-05] MEDS ORDERED: Iopamidol - 370 500 ML MLS IVP ONE ×2 (13:44)
[2022-05-05 13:45] LABS: BUN/Creatinine Ratio 4 (6-26); Blood Urea Nitrogen 34 mg/dL (6-20); Calcium 9.5 mg/dL (8.6-10.3); Carbon Dioxide 23 mEq/L (23-29); Chloride 90 mEq/L (98-107); Glucose 79 mg/dL (70-105); Osmolality,Calculated 277 (280-300); Potassium 3.7 mEq/L (3.5-5.1); Sodium 130 mEq/L (136-145); Troponin I < 0.03 ng/mL (< 0.04)
[2022-05-05] MEDS ORDERED: Iopamidol - 370 500 ML MLS PO ONE (13:59)
[2022-05-05] MEDS: *HR* OxyCODONE Immed Rel 5 MG TABLET PO PRN (16:03)
[2022-05-05] MEDS: Piperacillin/Tazobactam 3.375 GM in 0.9 % Sodium Chloride Mini Bag 100 ML IVPB SCH (22:24)
[2022-05-05] MEDS: *HR* HYDROmorphone 2 MG/ML SYRINGE IVP PRN (22:42)
[2022-05-06] MEDS ORDERED: *HR* Labetalol 20 MG/4 ML SYRINGE IVP ONE (00:13)
[2022-05-06] MEDS: *HR* OxyCODONE Immed Rel 5 MG TABLET PO PRN ×2 (01:06→08:58)
[2022-05-06] MEDS: *HR* HYDROmorphone 2 MG/ML SYRINGE IVP PRN ×3 (03:44→23:27)
[2022-05-06] MEDS: Piperacillin/Tazobactam 3.375 GM in 0.9 % Sodium Chloride Mini Bag 100 ML IVPB SCH ×2 (06:10→17:53)
[2022-05-06] MEDS: *HR* Enoxaparin 30 MG/0.3 ML SYRINGE SQ SCH ×2 (06:10→06:14)
[2022-05-06] MEDS: carvediloL 25 MG TABLET PO SCH ×2 (08:30→19:33)
[2022-05-06] MEDS ORDERED: Divalproex (24 HR) 500 MG TABLET PO SCH (09:00)
[2022-05-06] MEDS ORDERED: lisinopriL 20 MG TABLET PO SCH (09:00)
[2022-05-06] MEDS ORDERED: levETIRAcetam 250 MG TABLET PO SCH (09:00)
[2022-05-06] MEDS ORDERED: NIFEdipine XL (24 HR) 30 MG TAB.ER.24 PO SCH (09:00)
[2022-05-06] MEDS ORDERED: hydrALAZINE 25 MG TABLET PO SCH (09:00)
[2022-05-06 09:27] LABS: % Iron Saturation 25 % (20-55); Iron 45 mcg/dL (65-175); Transferrin 131 mg/dL (203-362)
[2022-05-06 09:36] LABS: Prothrombin Time 11.6 Seconds (9.4-12.1)
[2022-05-06 09:40] LABS: Ferritin 855 ng/mL (20-250)
[2022-05-06 09:53] LABS: Folate > 22.3 ng/mL (3.0-16.0); Vitamin B12 1125 pg/mL (250-1100)
[2022-05-06] MEDS ORDERED: Iopamidol - 370 500 ML MLS IVP ONE ×2 (10:16→19:31)
[2022-05-06 10:17] LABS: Calcium 9.3 mg/dL (8.6-10.3); Magnesium 2.3 mg/dL (1.6-2.6); Potassium 4.6 mEq/L (3.5-5.1)
[2022-05-06] MEDS ORDERED: Lidocaine -MPF 2% 5 ML VIAL ONE (10:59)
[2022-05-06] MEDS ORDERED: *HR* Midazolam HCl 2 MG/2 ML VIAL ONE (11:26)
[2022-05-06] MEDS ORDERED: *HR* FentaNYL (PF) 100 MCG/2 ML VIAL ONE (11:26)
[2022-05-06] MEDS ORDERED: *HR* Succinylcholine 200 MG/10 ML VIAL IVP ONE (11:27)
[2022-05-06] MEDS ORDERED: *HR* Propofol 200 MG/20 ML VIAL IVP ONE (11:27)
[2022-05-06] MEDS ORDERED: *HR* Rocuronium Bromide 50 MG/5 ML VIAL ONE (11:27)
[2022-05-06] MEDS ORDERED: Ketamine HCL *QUVA* 50mg (1mL) SYRINGE ONE (11:32)
[2022-05-06] MEDS: Pregabalin 25 MG CAPSULE PO SCH ×3 (11:51→23:26)
[2022-05-06] MEDS ORDERED: EPOETIN ALFA-EPBX 10,000 UNIT/ML VIAL SQ SCH (12:00)
[2022-05-06] MEDS ORDERED: Ethyl Chloride Spray Bottle (104 SPRAY/BOTTLE) TP PRN ×2 (12:01→19:31)
[2022-05-06] MEDS ORDERED: 0.9 % Sodium Chloride 250 ML IVC PRN ×2 (12:01→19:31)
[2022-05-06] MEDS ORDERED: EPHEDrine 50 MG/ML VIAL ONE (12:05)
[2022-05-06] MEDS ORDERED: *HR* Vasopressin 20 UNIT/ML VIAL ONE (12:08)
[2022-05-06] MEDS ORDERED: 0.9 % Sodium Chloride 2,000 ML PRIME SCH ×2 (12:15→19:31)
[2022-05-06] MEDS ORDERED: *HR* HYDROMORPHONE 2 MG/ML VIAL ONE (12:39)
[2022-05-06] MEDS ORDERED: Sugammadex Sodium 200 MG/2 ML VIAL IV ONE (12:40)
[2022-05-06] MEDS: *HR* FentaNYL (PF) 100 MCG/2 ML VIAL IVP PRN ×5 (15:01→18:06)
[2022-05-06] MEDS ORDERED: Ringers Solution, Lactated 1,000 ML ONE (16:51)
[2022-05-06] MEDS ORDERED: Naloxone 0.4 MG/ML INJ IVP PRN (19:31)
[2022-05-06] MEDS ORDERED: Ondansetron 4 MG/2 ML VIAL IVP PRN (19:31)
[2022-05-06] MEDS ORDERED: *HR* HYDROcodone/Acet 5/325 mg TABLET PO PRN (19:31)
[2022-05-06] MEDS: levETIRAcetam 250 MG TABLET PO SCH (21:22)
[2022-05-06] MEDS: Divalproex (24 HR) 500 MG TABLET PO SCH (21:22)
[2022-05-06] MEDS: hydrALAZINE 25 MG TABLET PO SCH (21:22)
[2022-05-07] MEDS: *HR* HYDROmorphone 2 MG/ML SYRINGE IVP PRN (02:45)
[2022-05-07] MEDS ORDERED: Acetaminophen IV 1,000 MG/100 ML BAG IVPB ONE (02:48)
[2022-05-07 05:35] LABS: Basophils % 0.2 %; Hematocrit 33.3 % (37.5-50.1); Immature Granulocytes % 0.4 % (0-4); Lymphocytes # 0.5 K/mcL (0.6-4.6); Mean Corpuscular Hemoglobin 35.9 pg (28.0-33.3); Mean Corpuscular Volume 108.8 fL (83.0-100.0); Mean Platelet Volume 10.4 fL (9.4-12.4); Monocytes # 1.9 K/mcL (0.0-1.3); Neutrophils # 13.4 K/mcL (1.6-8.9); Platelet Count 169 K/mcL (140-400); Red Blood Count 3.06 M/mcL (4.19-5.50); Red Cell Distribution Width 15.1 % (11.5-14.5); Segmented Neutrophils % 84.4 %
[2022-05-07 05:40] LABS: White Blood Count 15.9 K/mcL (4.3-11.1)
[2022-05-07] MEDS: Piperacillin/Tazobactam 3.375 GM in 0.9 % Sodium Chloride Mini Bag 100 ML IVPB SCH ×2 (06:14→17:34)
[2022-05-07 06:23] LABS: BUN/Creatinine Ratio 6 (6-26); Blood Urea Nitrogen 56 mg/dL (6-20); Calcium 8.9 mg/dL (8.6-10.3); Carbon Dioxide 19 mEq/L (23-29); Chloride 87 mEq/L (98-107); Glucose 61 mg/dL (70-105); Magnesium 2.2 mg/dL (1.6-2.6); Osmolality,Calculated 277 (280-300); Phosphorous 9.2 mg/dL (2.7-4.5); Potassium 5.4 mEq/L (3.5-5.1); Sodium 127 mEq/L (136-145)
[2022-05-07] MEDS: *HR* OxyCODONE Immed Rel 5 MG TABLET PO PRN ×3 (07:48→20:30)
[2022-05-07] MEDS: Divalproex (24 HR) 500 MG TABLET PO SCH ×2 (07:49→20:54)
[2022-05-07] MEDS: levETIRAcetam 250 MG TABLET PO SCH ×2 (07:49→20:54)
[2022-05-07] MEDS: Pregabalin 25 MG CAPSULE PO SCH ×3 (07:49→20:54)
[2022-05-07] MEDS: carvediloL 25 MG TABLET PO SCH ×2 (07:50→17:33)
[2022-05-07] MEDS ORDERED: 0.9 % Sodium Chloride 250 ML IVC PRN (08:10)
[2022-05-07] MEDS: lisinopriL 20 MG TABLET PO SCH (08:14)
[2022-05-07] MEDS ORDERED: *HR* HYDROmorphone (PF) 1 MG/ML SYRINGE IVP ONE (09:56)
[2022-05-07] MEDS: *HR* FentaNYL PATCH 25 MCG PATCH TD SCH (10:22)
[2022-05-07] MEDS: hydrALAZINE 25 MG TABLET PO SCH ×2 (14:27→20:54)
[2022-05-07] MEDS: NIFEdipine XL (24 HR) 30 MG TAB.ER.24 PO SCH (14:28)
[2022-05-07] MEDS ORDERED: *HR* Labetalol 20 MG/4 ML SYRINGE IVP PRN (15:16)
[2022-05-07] MEDS: Acetaminophen 325 MG TABLET PO PRN ×2 (16:23→17:14)
[2022-05-07] MEDS ORDERED: *HR* OxyCODONE Immed Rel 5 MG TABLET ONE (20:29)
[2022-05-08] MEDS: *HR* OxyCODONE Immed Rel 5 MG TABLET PO PRN ×3 (02:19→16:10)
[2022-05-08 03:42] LABS: Basophils % 0.3 %; Eosinophils % 0.3 %; Hematocrit 30.1 % (37.5-50.1); Hemoglobin 10.3 g/dL (12.9-16.9); Immature Granulocytes % 0.4 % (0-4); Lymphocytes # 0.4 K/mcL (0.6-4.6); Lymphocytes % 3.3 %; Mean Corpuscular HGB Conc 34.2 g/dL (31.6-35.5); Mean Corpuscular Hemoglobin 36.9 pg (28.0-33.3); Mean Corpuscular Volume 107.9 fL (83.0-100.0); Mean Platelet Volume 10.5 fL (9.4-12.4); Monocytes # 1.6 K/mcL (0.0-1.3); Monocytes % 14.4 %; Neutrophils # 9.1 K/mcL (1.6-8.9); Platelet Count 137 K/mcL (140-400); Red Blood Count 2.79 M/mcL (4.19-5.50); Red Cell Distribution Width 14.7 % (11.5-14.5); Segmented Neutrophils % 81.3 %; White Blood Count 11.2 K/mcL (4.3-11.1)
[2022-05-08 03:57] LABS: Calcium 8.7 mg/dL (8.6-10.3); Phosphorous 4.9 mg/dL (2.7-4.5)
[2022-05-08] MEDS: Piperacillin/Tazobactam 3.375 GM in 0.9 % Sodium Chloride Mini Bag 100 ML IVPB SCH ×2 (05:29→17:30)
[2022-05-08] MEDS ORDERED: 0.9 % Sodium Chloride 250 ML IVC PRN (08:57)
[2022-05-08] MEDS: Pregabalin 25 MG CAPSULE PO SCH ×3 (09:10→20:13)
[2022-05-08] MEDS: levETIRAcetam 250 MG TABLET PO SCH ×2 (09:11→20:13)
[2022-05-08] MEDS: Loratadine 10 MG TABLET PO SCH (09:12)
[2022-05-08] MEDS: Divalproex (24 HR) 500 MG TABLET PO SCH ×2 (09:12→20:13)
[2022-05-08] MEDS: hydrALAZINE 25 MG TABLET PO SCH ×3 (09:13→20:12)
[2022-05-08] MEDS: carvediloL 25 MG TABLET PO SCH ×2 (09:13→17:29)
[2022-05-08] MEDS: lisinopriL 20 MG TABLET PO SCH (09:14)
[2022-05-08] MEDS: NIFEdipine XL (24 HR) 30 MG TAB.ER.24 PO SCH (09:14)
[2022-05-08] MEDS: EPOETIN ALFA-EPBX 10,000 UNIT/ML VIAL SQ SCH (17:32)
[2022-05-08] MEDS ORDERED: Iopamidol - 370 500 ML MLS IVP ONE (18:36)
[2022-05-08] MEDS ORDERED: *HR* Labetalol 20 MG/4 ML SYRINGE IVP ONE (21:24)
[2022-05-08] MEDS ORDERED: Morphine Sulfate 2 MG/ML SYRINGE IVP ONE (22:27)
[2022-05-08] MEDS: Acetaminophen 325 MG TABLET PO PRN (22:51)
[2022-05-09] MEDS ORDERED: *HR* Labetalol 20 MG/4 ML SYRINGE IVP ONE (02:04)
[2022-05-09 03:59] LABS: Basophils # 0.1 K/mcL (0.0-0.2); Basophils % 0.5 %; Eosinophils # 0.1 K/mcL (0.0-0.6); Eosinophils % 1.3 %; Hematocrit 26.9 % (37.5-50.1); Hemoglobin 9.1 g/dL (12.9-16.9); Immature Granulocytes % 0.6 % (0-4); Lymphocytes # 0.4 K/mcL (0.6-4.6); Lymphocytes % 3.6 %; Mean Corpuscular HGB Conc 33.8 g/dL (31.6-35.5); Mean Corpuscular Hemoglobin 37.6 pg (28.0-33.3); Mean Corpuscular Volume 111.2 fL (83.0-100.0); Mean Platelet Volume 10.5 fL (9.4-12.4); Monocytes # 1.3 K/mcL (0.0-1.3); Monocytes % 12.3 %; Neutrophils # 8.4 K/mcL (1.6-8.9); Platelet Count 145 K/mcL (140-400); Red Blood Count 2.42 M/mcL (4.19-5.50); Red Cell Distribution Width 14.9 % (11.5-14.5); Segmented Neutrophils % 81.7 %; White Blood Count 10.3 K/mcL (4.3-11.1)
[2022-05-09 04:25] LABS: Calcium 8.9 mg/dL (8.6-10.3); Potassium 5.2 mEq/L (3.5-5.1)
[2022-05-09 04:55] LABS: Macrocytosis Present (Not Present); Platelet Estimate Normal (Normal)
[2022-05-09] MEDS: Piperacillin/Tazobactam 3.375 GM in 0.9 % Sodium Chloride Mini Bag 100 ML IVPB SCH ×2 (05:40→18:01)
[2022-05-09] MEDS: NIFEdipine XL (24 HR) 30 MG TAB.ER.24 PO SCH (05:41)
[2022-05-09] MEDS: hydrALAZINE 25 MG TABLET PO SCH ×3 (08:15→21:23)
[2022-05-09] MEDS: lisinopriL 20 MG TABLET PO SCH (08:15)
[2022-05-09] MEDS: Divalproex (24 HR) 500 MG TABLET PO SCH ×2 (08:16→21:22)
[2022-05-09] MEDS: carvediloL 25 MG TABLET PO SCH ×2 (08:16→15:54)
[2022-05-09] MEDS: Pregabalin 25 MG CAPSULE PO SCH ×3 (08:16→21:22)
[2022-05-09] MEDS: levETIRAcetam 250 MG TABLET PO SCH ×2 (08:16→21:22)
[2022-05-09] MEDS: Loratadine 10 MG TABLET PO SCH (08:16)
[2022-05-09] MEDS: *HR* OxyCODONE Immed Rel 5 MG TABLET PO PRN (08:18)
[2022-05-09] MEDS ORDERED: *HR* HYDROcodone/Acet 5/325 mg TABLET PO PRN (08:54)
[2022-05-10 01:44] LABS: Basophils # 0.1 K/mcL (0.0-0.2); Basophils % 0.6 %; Eosinophils # 0.3 K/mcL (0.0-0.6); Eosinophils % 2.3 %; Hematocrit 27.8 % (37.5-50.1); Immature Granulocytes % 0.5 % (0-4); Lymphocytes # 0.4 K/mcL (0.6-4.6); Lymphocytes % 3.2 %; Mean Corpuscular HGB Conc 32.4 g/dL (31.6-35.5); Mean Corpuscular Hemoglobin 35.9 pg (28.0-33.3); Mean Corpuscular Volume 110.8 fL (83.0-100.0); Mean Platelet Volume 10.1 fL (9.4-12.4); Monocytes # 0.9 K/mcL (0.0-1.3); Monocytes % 7.8 %; Neutrophils # 9.8 K/mcL (1.6-8.9); Platelet Count 157 K/mcL (140-400); Red Blood Count 2.51 M/mcL (4.19-5.50); Red Cell Distribution Width 14.8 % (11.5-14.5); Segmented Neutrophils % 85.6 %; White Blood Count 11.5 K/mcL (4.3-11.1)
[2022-05-10 01:50] LABS: Macrocytosis Present (Not Present); Platelet Estimate Normal (Normal)
[2022-05-10 02:03] LABS: Calcium 9.2 mg/dL (8.6-10.3)
[2022-05-10] MEDS ORDERED: *HR* Labetalol 20 MG/4 ML SYRINGE IVP ONE (02:57)
[2022-05-10] MEDS: Piperacillin/Tazobactam 3.375 GM in 0.9 % Sodium Chloride Mini Bag 100 ML IVPB SCH ×2 (05:44→20:10)
[2022-05-10] MEDS: Divalproex (24 HR) 500 MG TABLET PO SCH ×2 (07:45→20:09)
[2022-05-10] MEDS: Loratadine 10 MG TABLET PO SCH (07:45)
[2022-05-10] MEDS: hydrALAZINE 25 MG TABLET PO SCH ×3 (07:49→20:10)
[2022-05-10] MEDS: levETIRAcetam 250 MG TABLET PO SCH ×2 (07:49→20:09)
[2022-05-10] MEDS: lisinopriL 20 MG TABLET PO SCH (07:50)
[2022-05-10] MEDS: Pregabalin 25 MG CAPSULE PO SCH ×3 (07:50→20:10)
[2022-05-10] MEDS: carvediloL 25 MG TABLET PO SCH ×2 (07:50→20:11)
[2022-05-10] MEDS: NIFEdipine XL (24 HR) 30 MG TAB.ER.24 PO SCH (07:50)
[2022-05-10] MEDS ORDERED: 0.9 % Sodium Chloride 250 ML IVC PRN (08:22)
[2022-05-10] MEDS ORDERED: SODIUM ZIRCONIUM CYCLOSILICATE 5 GM POWD.PACK PO ONE (10:13)
[2022-05-10] MEDS: *HR* FentaNYL PATCH 25 MCG PATCH TD SCH (12:41)
[2022-05-10] MEDS: EPOETIN ALFA-EPBX 10,000 UNIT/ML VIAL SQ SCH (20:11)
[2022-05-11] MEDS ORDERED: *HR* Labetalol 20 MG/4 ML SYRINGE IVP ONE (03:24)
[2022-05-11] MEDS: NIFEdipine XL (24 HR) 30 MG TAB.ER.24 PO SCH (07:26)
[2022-05-11] MEDS: Loratadine 10 MG TABLET PO SCH (07:26)
[2022-05-11] MEDS: lisinopriL 20 MG TABLET PO SCH (07:27)
[2022-05-11] MEDS: Pregabalin 25 MG CAPSULE PO SCH ×3 (07:27→19:55)
[2022-05-11] MEDS: hydrALAZINE 25 MG TABLET PO SCH ×3 (07:27→19:54)
[2022-05-11] MEDS: Divalproex (24 HR) 500 MG TABLET PO SCH ×2 (07:27→19:55)
[2022-05-11] MEDS: levETIRAcetam 250 MG TABLET PO SCH ×2 (07:28→19:55)
[2022-05-11] MEDS: carvediloL 25 MG TABLET PO SCH ×2 (07:28→17:06)
[2022-05-11] MEDS: SODIUM ZIRCONIUM CYCLOSILICATE 5 GM POWD.PACK PO SCH (07:31)
[2022-05-11 09:09] LABS: Basophils # 0.1 K/mcL (0.0-0.2); Basophils % 0.5 %; Eosinophils # 0.4 K/mcL (0.0-0.6); Eosinophils % 2.8 %; Hematocrit 28.3 % (37.5-50.1); Hemoglobin 9.4 g/dL (12.9-16.9); Immature Granulocytes % 0.7 % (0-4); Lymphocytes # 0.4 K/mcL (0.6-4.6); Lymphocytes % 3.4 %; Mean Corpuscular HGB Conc 33.2 g/dL (31.6-35.5); Mean Corpuscular Hemoglobin 36.2 pg (28.0-33.3); Mean Corpuscular Volume 108.8 fL (83.0-100.0); Mean Platelet Volume 9.9 fL (9.4-12.4); Monocytes # 1.1 K/mcL (0.0-1.3); Monocytes % 8.5 %; Neutrophils # 10.3 K/mcL (1.6-8.9); Platelet Count 177 K/mcL (140-400); Red Cell Distribution Width 14.7 % (11.5-14.5); Segmented Neutrophils % 84.1 %; White Blood Count 12.3 K/mcL (4.3-11.1)
[2022-05-11 09:52] LABS: Calcium 9.4 mg/dL (8.6-10.3); Potassium 4.3 mEq/L (3.5-5.1)
[2022-05-12 07:43] VITALS: BP 139/98; PULSE 79; TEMP 98; O2SAT 97
[2022-05-12 09:19] LABS: Calcium 9.2 mg/dL (8.6-10.3); Potassium 4.9 mEq/L (3.5-5.1)
[2022-05-12] MEDS: NIFEdipine XL (24 HR) 30 MG TAB.ER.24 PO SCH (10:05)
[2022-05-12] MEDS: Divalproex (24 HR) 500 MG TABLET PO SCH (10:05)
[2022-05-12] MEDS: hydrALAZINE 25 MG TABLET PO SCH (10:05)
[2022-05-12] MEDS: Pregabalin 25 MG CAPSULE PO SCH (10:05)
[2022-05-12] MEDS: levETIRAcetam 250 MG TABLET PO SCH (10:06)
[2022-05-12] MEDS: Loratadine 10 MG TABLET PO SCH (10:06)
[2022-05-12] MEDS: SODIUM ZIRCONIUM CYCLOSILICATE 5 GM POWD.PACK PO SCH (10:06)
[2022-05-12] MEDS: lisinopriL 20 MG TABLET PO SCH (10:06)
[2022-05-12] MEDS: carvediloL 25 MG TABLET PO SCH (10:08)
== END 2022-05-12 11:37 | disposition home or self-care (01) | DRG 121 ==
LOC: 2ANU 11:37 → EMEROOARM 11:37 → 2ANU 14:10 → SUATTDRO 18:43 → 2NNU 05-06 19:30
PROVIDERS: ADMIT Pharmacist; ATTEND Internal Medicine